=== PATIENT | male | born 1945 | race Hispanic/Latino ===

== ENCOUNTER 2019-06-20 11:20 | Emergency (ER) | payer MEDICARE ==
[~2019-06-20] VITALS: Ht 160 cm; Wt 72.6 kg
--- OUTSIDE RECORDS SUMMARY | 2019-06-20 11:23 | XMS REPORT ---
Author [facility] Address Unknown Phone Unavailable Care Team Providers Care Service Delivery Management Consultant Name Role Phone Unavailable Unavailable Payers Payer Name Policy Type Policy Number Effective Date Expiration Date Problems This patient has no known problems. Allergies, Adverse Reactions, Alerts Allergy Name Allergy Type Status Severity Reaction(s) Onset Date Inactive Date Treating Clinician Comments No Known Allergies DA Active U 2019-05-05 00:00:00 No Known Allergies DA Active U 2017-04-17 00:00:00 Medications This patient has no known medications. Results Test Description Test Time Test Comments Text Results Atomic Results Result Comments PROTHROMBIN TIME 2019-05-23 15:33:00 PROTHROMBIN TIME PATIENT (test code=PTP) 10.9 SECONDS 9.3-12.9 INTERNATIONAL NORMAL RATIO (test code=INR) 1.0 0.8-1.2 TARGET INR BY INDICATION Indication INR1. Prophylaxis of venous thrombosis 2.0 - 3.0 (orthopedic surgery), Prophylaxis of venous thrombosis (other than high-risk surgery), Treatment of Deep Vein Thrombosis/Pulmonary Embolism, Prevention of systemic embolism - Tissue heart valves, Acute Myocardial Infarction (to prevent systemic embolism), Valvular heart disease, Atrial Fibrillation, Bileaflet mechanical valve in aortic position.2. Mechanical prosthetic valves (high risk), 2.5 - 3.5 Presence of Lupus Anticoagulant or Antiphospholipid Antibodies, Prevention of systemic embolism - Acute Myocardial Infarction (to prevent recurrent infarct). THROMBOPLASTIN TIME [id number] 15:33:00* Test Item Value Reference Range Comments THROMBOPLASTIN TIME PARTIAL (test code=PTT) 30.2 Seconds 25.0-39.5 Therapeutic Range: 50.4 - 88.3 Seconds Effective 01/10/2019 PLATELET [id number] 15:33:00* Test Item Value Reference Range Comments PFA COL/EPI (test code=PFA) 86 SECONDS 80-184 An abnormal COL/EPI value in combination with a normalCOL/ADP, suggests exposure to platelet inhibiting agents. An abnormal COL/EPI and an abnormal COL/ADP result suggestabnormal platelet function due to intrinsic platelet defectsor von Willebrand's disease. PFA COLLAGEN/ADP (test code=COLADP) TEST NOT PERFORMED SECONDS SURGICAL [id number] 08:48:00 RUN DATE: 05/12/19 [facility] *LIVE* PAGE 1 RUN TIME: 0848 Specimen Inqui ry RUN USER: INTERFACE PATIENT: CLARENCE PATTEN ACCT #: [id number] LOC: G.1SOC U #: [id number] AGE/SX: 73/M ROOM: [facility] RE05/09/19REG DR: Victor Hugo Lange MD : 45 BED: 1 DIS: 05/10/19 STATUS: DIS Reilly TLOC: SPEC #: [id number] RECD: 05/09/19 STATUS: YULISA TOM #: [id number] THELMA: 05/09/[address]: Victor Hugo Lange ENTERED: 05/11/19 SP TYPE: SURG SPEC OTHR DR: Kojo Perez MD, Henry MD R ajan, Rajeswari T MDORDERED: GM LEVEL 4 CODES: [id number] - KIDNEY, NOS COPIES TO: Kojo Perez MD [address] [place] [address] Connie Lange MD [address] [facility] [address] [place] [address] Miguel Yoder MD [address] [place] [address] Mona Hopkins MD [address] [place] [address] [address] [place] [address] P ROCEDURES: GM LEVEL 4 (Incomplete) TISSUES: 1. KIDNEY, NOS - Kidney, l eft, bx. FINAL DIAGNOSIS Kidney, left, bx.: Sent to [facility] for processing and interpretation by the request of the attending physicia nSara OUTSIDE CONSULTATION ONLY! CONT INUED ON NEXT PAGE RUN DATE: 05/12/19 [facility] *LIVE* PAGE 2 RUN TIME: 0848 Specimen Inquiry RUN USER: INTERFACE SPEC #: [id number] PATIENT: CLARENCE PATTEN #[id number] (Continued) GROSS AND MICROSCOPIC GROSS DESCRIPTION: Received is a left kidney biop sy that will be sent to [facility] for processing and interpretation by the request of the attending physician. OUTSIDE CONSULTATION ONLY! POST-OP DIAGNOSIS None given PRE-OP DIAGNOSIS Proteinuria, chronic kidney disease Signed SIGNATURE ON FILE Juve Dunn MD 05/12/19 0848 END OF REPORT BASIC METABOLIC [id number] 08:22:00* Test Item Value Reference Range Comments SODIUM (test code=NA) 144 mEq/L 134-147 POTASSIUM (test code=K) 4.6 mEq/L 3.4-5.0 CHLORIDE (test code=CL) 113 mEq/L 100-108 CARBON DIOXIDE (test code=CO2) 23 mEq/L 21-33 ANION GAP (test code=GAP) 13 0-20 GLUCOSE (test code=GLU) 98 mg/dL 70-110 BLOOD UREA NITROGEN (test code=BUN) 52 mg/dL 7-18 GLOMERULAR FILTRATION RATE (test code=GFR) 15.2 70-80 Units of measure=ml/min/1.73 m2 CREATININE (test code=CREAT) 3.9 mg/dL 0.6-1.3 CALCIUM (test code=CA) 7.9 mg/dL 8.0-10.5 CBC W/AUTO [id number] 07:43:00* Test Item Value Reference Range Comments WHITE BLOOD CELL (test code=WBC) 9.99 x10 3/uL 4.5-11.0 RED BLOOD CELL (test code=RBC) 3.86 x10 6/uL 4.00-5.60 HEMOGLOBIN (test code=HGB) 11.2 g/dL 12.5-16.9 HEMATOCRIT (test code=HCT) 35.1 % 37.5-50.7 MEAN CELL VOLUME (test code=MCV) 90.9 fL 81.0-99.0 MEAN CELL HGB (test code=MCH) 29.0 pg 27.0-33.0 MEAN CELL HGB CONCETRATION (test code=MCHC) 31.9 g/dL 33.0-37.0 RED CELL DISTRIBUTION WIDTH CV (test code=RDW) 15.2 % 11.5-14.5 RED CELL DISTRIBUTION WIDTH SD (test code=RDW-SD) 50.5 fL 37.0-54.0 PLATELET COUNT (test code=PLT) 228 x10 3/uL 150-400 MEAN PLATELET VOLUME (test code=MPV) 11.2 fL 7.0-9.0 NEUTROPHIL % (test code=NT%) 73.1 % 56.0-77.0 IMMATURE GRANULOCYTE % (test code=IG%) 0.7 % 0.0-2.0 LYMPHOCYTE % (test code=LY%) 16.5 % 14.0-32.0 MONOCYTE % (test code=MO%) 7.9 % 4.8-9.0 EOSINOPHIL % (test code=EO%) 1.3 % 0.3-3.7 BASOPHIL % (test code=BA%) 0.5 % 0.0-2.0 NUCLEATED RBC % (test code=NRBC%) 0.0 % 0-0 NEUTROPHIL # (test code=NT#) 7.30 x10 3/uL 2.0-7.6 IMMATURE GRANULOCYTE # (test code=IG#) 0.07 x10 3/uL 0.00-0.03 LYMPHOCYTE # (test code=LY#) 1.65 x10 3/uL 1.0-3.8 MONOCYTE # (test code=MO#) 0.79 x10 3/uL 0.1-0.8 EOSINOPHIL # (test code=EO#) 0.13 x10 3/uL 0.0-0.2 BASOPHIL # (test code=BA#) 0.05 x10 3/uL 0.0-0.2 NUCLEATED RBC # (test code=NRBC#) 0.00 x10 3/uL 0.0-0.1 MANUAL DIFF REQUIRED (test code=MDIFF) NO [id number] 21:58:00* Test Item Value Reference Range Comments HEMOGLOBIN (test code=HGB) 10.1 g/dL 12.5-16.9 - RETRO [id number] 15:40:00 Name: CLARENCE PATTEN [facility] : 1945 Age/S: 73 / M [address] [place] [address] Bl Unit #: [id number] Loc: [place] [address] Phys: Miguel Yoder MD Acct: [id number] Dis Date: Status: ADM IN PHONE #: [phone] Exam Date: 05/09/2019 1206 FAX #: [phone] Reason: PROTEINURIA, CKD EXAMS: CPT CODE: [id number] RETRO LTD 37976 PROCEDURE: Ultrasound guided renal biopsy. INDICATION: Stage IV chronic kidney disease, proteinuria. COMPARISON: None. MODERATE SEDATION: I supervised moderate sedation during this procedure. The patient was monitored by nurse using automated blood pressure, EKG and pulse oximetry. The moderate sedation record is permanently stored in the hospital information system. The personal supervised moderate sedation time was 24 minutes. Medications administered: 1 mg of IV Versed and 50 micrograms of IV Fentanyl. PROCEDURE: Imaging was used to evaluate potential biopsy sites. Preliminary imaging demonstrates thinning of renal parenchyma in the left kidney.. The procedure, risks, benefits and alternatives were discussed. Informed consent was obtained. Timeout was performed prior to the procedure. The skin overlying the kidney was sterilely prepped and draped. 1% lidocaine was used for local anesthesia. Using imaging guidance, a 18-gauge needle was advanced into the lower pole left kidney. Core biopsy was performed. Total number of biopsies obtained was 3. Images were obtained to document needle positions for permanent recording and reporting. The samples were immediately submitted to patholo gy department. The pathology department confirmed diagnostic adequacy of the samples. There were no evident complications and the patient had no complaints. Pressure was applied at the puncture site with adequate hem ostasis. Final pathology results are pending. IMPRESSION: 1. Technically successful ultrasound guided biopsy of the left kidne y. PLAN: 23 hour observation. SL: [id number] PAGE 1 Signed Report (CONTINUED) Name: CLARENCE PATTEN [facility]adim [facility] [place] : 1945 Age/S: 73 / M [address] [place] [address] Unit #: [id number] Loc: [place], [place] [address] Phys: Miguel Yoder MD Acct: [id number] Dis Date: Status: ADM IN PHONE #: [phone] Exam Date: 05/09/2019 1206 FAX #: [phone] Reason: PROTEINURIA, CKD EXAMS: CPT CODE: [id number] [facility] [address] < Continued> at 1540 Reported and signed by: Kojo Conrad M.D. CC: Miguel Yoder MD; Christen Hopkins Technologist: Benita Pyle Trnsdb Date/Time: 05/09/2019 (1540) [email or web address] Orig Print D/T: S: 05/09/2019 (5990) Probe: PAGE 2 Signed Report - USG NDL PLACEMENT (Bxg/Asp)2019-05-09 15:40:00 Name: CLARENCE PATTEN [facility] : 1945 Age/S: 73 / M [address] [place] [address] Unit #: [id number] Loc: [place], [place] [address] Phys: Miguel Yoder MD Acct: [id number] Dis Date: Status: ADM IN PHONE #: [phone] Exam Date: 05/09/20191205 FAX #: [phone] Reason: PROTEINURIA, CHRONIC KIDNEY DISEASE STAGE 4 EXAMS: CPT CODE: [id number] USG NDL PLACEMENT (Bxg/Asp) 61852 PROCEDURE: Ultrasound guided renal biopsy. INDICATION: Stage IV chronic kidney disease, proteinuria. COMPARISON: None. MODERATE SEDATION: I supervised moderate sedation during this procedure. The patient was monitored by nurse using automated blood pressure, EKG and pulse oximetry. The moderate sedation record is permanently stored in the hospital information system. The personal supervised moderate sedation time was 24 minutes. Medications administered: 1 mg of IV Versed and 50 micrograms of IV Fentanyl. PROCEDURE: Imaging was used to evaluate potential biopsy sites. Preliminary imaging demonstrates thinning of renal parenchyma in the left kidney.. The procedure, risks, benefits and alternatives were discussed. Informed consent was obtained. Timeout was performed prior to the procedure. The skin overlying the kidney was sterilely prepped and draped. 1% lidocaine was used for local anesthesia. Using imaging guidance, a 18-gauge needle was advanced into the lower pole left kidney. Core biopsy was performed. Total number of biopsies obtained was 3. Images were obtained to document needle positions for permanent recording and reporting. The samples were immediately submitted to patholo gy department. The pathology department confirmed diagnostic adequacy of the samples. There were no evident complications and the patient had no complaints. Pressure was applied at the puncture site with adequate hem ostasis. Final pathology results are pending. IMPRESSION: 1. Technically successful ultrasound guided biopsy of the left kidne y. PLAN: 23 hour observation. SL: [id number] PAGE 1 Signed Report (CONTINUED) Name: CLARENCE PATTEN [facility] : 1945 Age/S: 73 / M [address] [place] [address] Blvd Unit #: [id number] Loc: [place] [address] Phys: Miguel Yoder MD Acct: [id number] Dis Date: Status: ADM IN PHONE #: [phone] Exam Date: 05/09/20191205 FAX #: [phone] Reason: PROTEINURIA, CHRONIC KIDNEY DISEASE STAGE 4 EXAMS: CPT CODE: [id number] USG NDL PLACEMENT (Bxg/Asp) 44881 < Continued> at 1540 Reported and signed by: Kojo Conrad M.D. CC: Miguel Yoder MD; Christen Hopkins Technologist: [facility]ita Pyle [facility] Date/Time: 05/09/2019 (1540) MichelleG Orig Print D/T: S: 05/09/2019 (3662) Probe: PAGE 2 Signed Report [id number] 13:20:00* Test Item Value Reference Range Comments GLUBED (test code=GLUBED) 180 MG/DL 70-110 Performed by certified rip and groove machine operator at [facility] PROTHROMBIN [id number] 10:23:00* Test Item Value Reference Range Comments PROTHROMBIN TIME PATIENT (test code=PTP) 10.9 SECONDS 9.3-12.9 INTERNATIONAL NORMAL RATIO (test code=INR) 1.0 0.8-1.2 TARGET INR BY INDICATION Indication INR1. Prophylaxis of venous thrombosis 2.0 - 3.0 (orthopedic surgery), Prophylaxis of venous thrombosis (other than high-risk surgery), Treatment of Deep Vein Thrombosis/Pulmonary Embolism, Prevention of systemic embolism - Tissue heart valves, Acute Myocardial Infarction (to prevent systemic embolism), Valvular heart disease, Atrial Fibrillation, Bileaflet mechanical valve in aortic position.2. Mechanical prosthetic valves (high risk), 2.5 - 3.5 Presence of Lupus Anticoagulant or Antiphospholipid Antibodies, Prevention of systemic embolism - Acute Myocardial Infarction (to prevent recurrent infarct). THROMBOPLASTIN TIME [id number] 10:23:00* Test Item Value Reference Range Comments THROMBOPLASTIN TIME PARTIAL (test code=PTT) 30.2 Seconds 25.0-39.5 Therapeutic Range: 50.4 - 88.3 Seconds Effective 01/10/2019 PLATELET [id number] 10:23:00* Test Item Value Reference Range Comments PFA COL/EPI (test code=PFA) 86 SECONDS 80-184 An abnormal COL/EPI value in combination with a normalCOL/ADP, suggests exposure to platelet inhibiting agents. An abnormal COL/EPI and an abnormal COL/ADP result suggestabnormal platelet function due to intrinsic platelet defectsor von Willebrand's disease. PFA COLLAGEN/ADP (test code=COLADP) SECONDS PROTHROMBIN [id number] 08:19:00* Test Item Value Reference Range Comments PROTHROMBIN TIME PATIENT (test code=PTP) 10.9 SECONDS 9.3-12.9 INTERNATIONAL NORMAL RATIO (test code=INR) 1.0 0.8-1.2 TARGET INR BY INDICATION Indication INR1. Prophylaxis of venous thrombosis 2.0 - 3.0 (orthopedic surgery), Prophylaxis of venous thrombosis (other than high-risk surgery), Treatment of Deep Vein Thrombosis/Pulmonary Embolism, Prevention of systemic embolism - Tissue heart valves, Acute Myocardial Infarction (to prevent systemic embolism), Valvular heart disease, Atrial Fibrillation, Bileaflet mechanical valve in aortic position.2. Mechanical prosthetic valves (high risk), 2.5 - 3.5 Presence of Lupus Anticoagulant or Antiphospholipid Antibodies, Prevention of systemic embolism - Acute Myocardial Infarction (to prevent recurrent infarct). THROMBOPLASTIN TIME [id number] 08:19:00* Test Item Value Reference Range Comments THROMBOPLASTIN TIME PARTIAL (test code=PTT) 30.2 Seconds 25.0-39.5 Therapeutic Range: 50.4 - 88.3 Seconds Effective 01/10/2019 PLATELET [id number] 08:19:00* Test Item Value Reference Range Comments PFA COL/EPI (test code=PFA) SECONDS PFA COLLAGEN/ADP (test code=COLADP) SECONDS
--- NOTE | 2019-06-20 12:20 | NUR ---
DR. BECK AT BEDSIDE FOR PT EVAL AND UPDATING PT ON PLAN OF CARE AT THIS TIME.
--- NOTE | 2019-06-20 13:38 | NUR ---
DR. MEIER AT BEDSIDE FOR PT EVAL.
[2019-06-20 13:45] LABS: BASOPHILS # (AUTO) 0.1 (0.0-0.1); BASOPHILS % 0.5 % (0.0-1.0); EOSINOPHILS # (AUTO) 0.2 (0.0-0.4); EOSINOPHILS % 1.6 % (0.0-6.0); HEMATOCRIT 25.1 % (38.2-49.6); LYMPHOCYTES # (AUTO) 1.7 (1.0-3.2); LYMPHOCYTES % 15.2 % (18.0-39.1); MEAN CORPUSCULAR HEMOGLOBIN 30.1 pg (28-32); MEAN CORPUSCULAR HGB CONC 31.9 g/dL (31-35); MEAN CORPUSCULAR VOLUME 94.4 fL (81-99); MONOCYTES # (AUTO) 0.8 (0.2-0.8); MONOCYTES % 7.5 % (4.4-11.3); NEUTROPHILS # (AUTO) 8.2 (2.1-6.9); NEUTROPHILS % 74.6 % (38.7-80.0); PLATELET COUNT 183 x10e3/uL (140-360); RED BLOOD COUNT 2.66 x10e6/uL (4.3-5.7); RED CELL DISTRIBUTION WIDTH 13.2 % (11.7-14.4)
[2019-06-20 14:08] LABS: ALBUMIN/GLOBULIN RATIO 0.6 (0.8-2.0); ANION GAP 15.6 mmol/L (8-16); CALCIUM 7.3 mg/dL (8.4-10.2); CREATININE, SERUM 5.39 mg/dL (0.72-1.25); POTASSIUM 3.6 mmol/L (3.5-5.1)
[2019-06-20 14:45] VITALS: BP 198/85
== END 2019-06-20 14:48 | disposition home or self-care (01) ==
LOC: ER 11:20
DX: R60.9 Edema, unspecified (principal); N17.9 Acute kidney failure, unspecified; N50.89 Other specified disorders of the male genital organs
CPT/HCPCS: 36415; 80053; 85025; 99283

== ENCOUNTER → 2019-08-31 | Outpatient (CLI) | payer MEDICARE ==
--- NOTE | 2019-08-31 12:50 | Diagnostic Imaging Report ---
CT of the abdomen and pelvis History: 80 calculus Comparison: None available. Technique: Multidetector CT scanning of the abdomen and pelvis was performed from the level of the lung bases to the inferior pubic ramus without contrast DOSE REDUCTION: The examination was performed according to departmental dose-optimization program which includes automated exposure control, adjustment of the mA and/or kV according to patient size and/or use of iterative reconstruction technique. Discussion: Small bilateral pleural effusions are present. Lack of IV contrast was evaluation of solid and hollow visceral organs. No focal hepatic lesions are identified. The gallbladder is present nondistended. There are no radiopaque gallstones. There is no intrahepatic or extrahepatic ductal dilatation. The spleen is within normal limits. The bilateral adrenal glands are unremarkable. The pancreas is homogeneous in attenuation. There is no pancreatic ductal dilatation. Calcifications at the tail of the pancreas may be related to the sequela of prior pancreatitis. The kidneys are normal in size. No kidney stones are identified. There is no hydroureteronephrosis bilaterally. There is exophytic cyst arising from the upper pole of the left kidney which measures 4 cm in diameter. The stomach, small, and large bowel are nondistended. There is no evidence of obstruction. No bowel wall thickening is appreciated. There is colonic diverticulosis without evidence of acute diverticulitis. There is no free intraperitoneal air or ascites. The abdominal aorta is of normal course and caliber. The urinary bladder is within normal limits. The prostate is not enlarged. No acute osseous abnormalities are identified. IMPRESSION: 1. No evidence of nephroureterolithiasis. 2. Small bilateral pleural effusions. 3. Colonic diverticulosis without evidence of acute diverticulitis. Signed by: Ronan Tam MD on 08/31/2019 12:47 PM
== END ==
LOC: CT 10:26
PROVIDERS: ATTEND Urology
DX: N20.0 Calculus of kidney (principal)
CPT/HCPCS: 74176

== ENCOUNTER 2019-09-07 15:57 | Inpatient (IN) | payer MEDICARE ==
[~2019-09-07] VITALS: Ht 160 cm; Wt 72.2 kg
[2019-09-07] MEDS ORDERED: HYDRALAZINE HCL50 MG PO (16:31)
[2019-09-07] MEDS ORDERED: NIFEDIPINE ER30 MG PO (16:31)
[2019-09-07] MEDS ORDERED: BUMETANIDE2 MG PO (16:31)
[2019-09-07] MEDS ORDERED: CARVEDILOL25 MG PO (16:31)
[2019-09-07 16:54] LABS: BASOPHILS % 0.3 % (0.0-1.0); EOSINOPHILS # (AUTO) 0.3 (0.0-0.4); EOSINOPHILS % 3.3 % (0.0-6.0); HEMATOCRIT 19.6 % (38.2-49.6); LYMPHOCYTES # (AUTO) 1.5 (1.0-3.2); LYMPHOCYTES % 16.7 % (18.0-39.1); MEAN CORPUSCULAR HEMOGLOBIN 29.7 pg (28-32); MEAN CORPUSCULAR HGB CONC 32.1 g/dL (31-35); MEAN CORPUSCULAR VOLUME 92.5 fL (81-99); MONOCYTES # (AUTO) 0.9 (0.2-0.8); MONOCYTES % 9.5 % (4.4-11.3); NEUTROPHILS # (AUTO) 6.3 (2.1-6.9); PLATELET COUNT 243 x10e3/uL (140-360); RED BLOOD COUNT 2.12 x10e6/uL (4.3-5.7); RED CELL DISTRIBUTION WIDTH 13.7 % (11.7-14.4)
[2019-09-07 16:56] LABS: HEMOGLOBIN 6.3 g/dL (14.0-18.0)
[2019-09-07] MEDS ORDERED: SODIUM CHLORIDE 0.9% 250ML 250 ML IV ONE (17:00)
[2019-09-07 17:12] LABS: ALBUMIN 2.9 g/dL (3.5-5.0); ALBUMIN/GLOBULIN RATIO 0.9 (0.8-2.0); ANION GAP 22.1 mmol/L (8-16); CALCIUM 8.2 mg/dL (8.4-10.2); CREATININE, SERUM 11.06 mg/dL (0.72-1.25); MAGNESIUM 1.8 MG/DL (1.3-2.1)
[2019-09-07] MEDS ORDERED: MORPHINE SULFATE INJ 4 MG/ML INJ 1ML IV PRN (17:15)
[2019-09-07] MEDS ORDERED: MORPHINE SULFATE 2 MG/ML SYR 1ML IV PRN (17:15)
[2019-09-07] MEDS ORDERED: ONDANSETRON HCL INJ 2MG/ML 2ML 2 MG/ML VIAL IV PRN (17:15)
[2019-09-07 17:16] LABS: POTASSIUM 5.1 mmol/L (3.5-5.1)
--- NOTE | 2019-09-07 17:22 | Diagnostic Imaging Report ---
Chest, 1 view, 09/07/2019. History: Shortness of breath. Comparison: None available. Findings: The cardiomediastinal silhouette and pulmonary vasculature are mildly prominent with hazy bilateral perihilar and bibasilar opacities. There is mild blunting of the costophrenic sulci bilaterally. There are no acute osseous or soft tissue abnormalities. Impression: Mild CHF with bibasilar atelectasis and small pleural effusions. Signed by: Cornelius Reeves on 09/07/2019 5:19 PM
[2019-09-07 17:30] LABS: CREATINE KINASE MB 1.8 ng/mL (0-5.0)
[2019-09-07 17:44] LABS: BILIRUBIN,URINE NEGATIVE (NEGATIVE); CLARITY,URINE SL CLOUDY (CLEAR); COLOR,URINE YELLOW (YELLOW); KETONES,URINE NEGATIVE (NEGATIVE); LEUKOCYTE ESTERASE ,URINE NEGATIVE (NEGATIVE); NITRITE,URINE NEGATIVE (NEGATIVE); PROTEIN,URINE DIPSTICK 2+ (NEGATIVE); URINE UROBILINOGEN 0.2 mg/dL (0.2 - 1)
[2019-09-07] MEDS ORDERED: FUROSEMIDE INJ 10 MG/ML 4 ML VIAL IV ONE (17:45)
[2019-09-07 17:51] LABS: AMORPHOUS SEDIMENT,URINE MODERATE (FEW); BACTERIA,URINE MODERATE /HPF; EPITHELIAL CELLS,URINE MODERATE /LPF
[2019-09-07 17:58] LABS: INR 1.01; PARTIAL THROMBOPLASTIN TIME 26.8 seconds (23.8-35.5); PROTHROMBIN TIME 13.8 seconds (11.9-14.5)
--- NOTE | 2019-09-07 19:40 | NUR ---
CALL PLACED TO RADIOLOGY REGARDING IR CONSULT. WAS INFORMED THAT IR WOULD BE PAGED AT THIS TIME. CONSENT ON CHART.
[2019-09-07] MEDS: AZITHROMYCIN 250MG/NS 100 ML 100 ML IV SCH (20:16)
[2019-09-07 21:00] VITALS: BP 165/77
--- NOTE | 2019-09-07 21:05 | NUR ---
IR CONSULT AMENDED TO INCLUDE THAT THE PT IS HAVING DIALYSIS DIRECTLY AFTER CATH PLACED TONIGHT, PER REQUEST OF IR DR. DR OLMEDO
--- NOTE | 2019-09-07 21:42 | NUR ---
DR MEIER CALLED THE ER, DR MIRANDA SPOKE BRIEFLY WITH HIM ABOUT IR PROCEDURE. SITUATION ESCALATED TO JAMEL GUTIÉRREZ. CHARGE NURSE AND SUPERVISIOR AWARE.
[2019-09-07 22:00] VITALS: BP 155/75
--- NOTE | 2019-09-07 22:30 | NUR ---
Called Rosalie and Paged the HD RN. Awaiting Callback
[2019-09-07] MEDS: SODIUM BICARBONATE 650 MG TAB PO SCH (22:52)
[2019-09-07] MEDS: BENZONATATE 100 MG CAP PO SCH (22:52)
[2019-09-07 23:00] VITALS: BP 169/76
[2019-09-08] VITALS (24 sets, daily range): BP systolic 155–187; BP diastolic 69–119
--- NOTE | 2019-09-08 00:17 | Diagnostic Imaging Report ---
EXAMINATION: CHEST XRAY LINE PLACEMENT INDICATION: Dialysis catheter placement, verify position COMPARISON: Chest x-ray 09/07/2019, abdominal CT 08/31/2019 FINDINGS: TUBES and LINES: New right IJ central venous catheter, tip in the superior cavoatrial junction. LUNGS/PLEURA: Bilateral central hazy airspace opacities in diffuse increased pulmonary interstitial lung markings. Heart and pulmonary vasculature. Obscured bilateral costophrenic sulci. HEART AND MEDIASTINUM: Cardiac size is mildly enlarged. BONES AND SOFT TISSUES: There are degenerative changes in the spine. Soft tissues are unremarkable. UPPER ABDOMEN: No free air under the diaphragm. IMPRESSION: New right IJ central venous catheter, tip in the superior cavoatrial junction. Mild cardiomegaly, pulmonary edema, and small bilateral pleural effusions. Signed by: Viral Grant DO on 09/08/2019 12:14 AM
--- NOTE | 2019-09-08 00:27 | Consultation ---
DATE OF CONSULTATION: 09/07/2019 LOCATION: Emergency room. HISTORY OF PRESENT ILLNESS: This is a 73-year-old gentleman, known to me in my Nephrology service, follows up with Dr. Yoder. He has CKD, 5, presents with weakness, dyspnea on exertion, malaise, and poor appetite. Upon arrival to the emergency room, he was placed on 2 L nasal cannula. He is currently awake, alert, and oriented x3. His is by the bedside. His conjunctivae and skin kind of look pale. He denies any hematemesis or melena. He admits to dyspnea on exertion. He had some chest pain this morning, has resolved. He denies any abdominal pain, diarrhea, melena, hematochezia, or black stools. He also denies any fevers or chills. ALLERGIES: HE HAS NO DRUG ALLERGIES. LABORATORY DATA: His labs show white count 9.1, hemoglobin 6.3 with a potassium 5.1, bicarbonate 13, and creatinine 11. He has a BNP of 674. Urinalysis is pending. HOME MEDICATIONS: Not reconciled yet. Currently, he is on morphine p.r.n. He is on ondansetron p.r.n. and received one time dose of furosemide. SOCIAL HISTORY: He does not smoke or drink. PAST MEDICAL HISTORY: Significant for hypertension and CKD, 5. He has been following up with Dr. Dr. Yoder and they were considering initiating dialysis. He does not have an AV fistula. He does have a history of congestive heart failure. He has been on carvedilol and hydralazine and nifedipine at home. He also takes Bumex at home. PHYSICAL EXAMINATION: GENERAL: Awake, alert, and oriented x3, lying supine, in no apparent respiratory distress. VITAL SIGNS: Blood pressure of 160/84, pulse rate 78, afebrile, and oxygen saturation 97% on 2 L nasal cannula. HEAD AND NECK: Conjunctivae pale. Oral mucosa moist. NECK: Neck veins are not distended. LUNGS: Occasional bibasilar rales. HEART: No gallop. Two to 3/6 ejection systolic murmur heard over left sternal border. ABDOMEN: Otherwise, soft and nontender. No apparent visceromegaly. EXTREMITIES: Lower extremity, 1+ pretibial edema. IMPRESSION: 1. Advanced kidney failure, anemia, and metabolic acidosis. Discussed with the patient. He agrees to initiate dialysis. Discussed with ER physician, who is going to place a stat call for IR to place a temporary dialysis catheter. ER is also going to call the dialysis nurses stat for stat dialysis. ER to arrange for 2 units of packed RBC. In the meantime, the patient will be admitted to the ICU. I will dialyze the patient, transfuse packed RBC, and address his fluid overload, acidosis and hyperkalemia on dialysis. I will place on a renal diet. Further workup ordered. MD BISHOP Boyikn/MODL /[id number]
[2019-09-08] MEDS ORDERED: SODIUM CHLORIDE 0.9% 250ML 250 ML ONE (01:28)
--- NOTE | 2019-09-08 05:14 | NUR ---
H&P PCP Calderon Rose MD, PhD Cardio: Nephr: Lucía cc: sob HPI: 73yoM, developed worsening SOB and fatigue, with hx CKD3, now needing initiation of HD. PMH: 1,HTN 2. HLD 3., Low vitamin B12 4. Peripheral edema 5. Carotid disease 6. Overweight 7.BMI 29.9 8. Erectile dysfunction 9. Essential Tremor 10.PreDM 11. DM-nephropathy 12. 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 Low testosterone 14.BPH 15.Senile cataract 16.Hypertensive nephropathy RESOLVED .Nephrolithiasis Left s/p lithotripsy - RESOLVED RESOLVED. Right triceps Myalgia- RESOLVED RESOLVED- Obesity- RESOLVED Past Surgical History: Lithotripsy, cataract Allergies; see emr Fh/Sh; no illicits Meds; see MAR ROS: no f/c/s/N/V/D/VOSS/cp/dizziness/back pain/confusion/agiation/skin rash v/s revd PE tired appearing anicteric ns1s2 reduced BS soft nt nd 1+ leg edema B/L skin dry flat affect Right neck HD catheter labs/meds revd A/P: 73yoM JUNAID in CKD3 CKD3 due to HTN- initiate HD Hypertensive nephropathy Severe anemia HTN Pulmonary edema Peripheral edema Overweight BMI 28.3 PreDM PLAN Initiate HD Cardio eval hba1c/Lipids Calderon Rose MD, PhD.
[2019-09-08 05:23] LABS: HEMATOCRIT 24.4 % (38.2-49.6); MEAN CORPUSCULAR HEMOGLOBIN 29.7 pg (28-32); MEAN CORPUSCULAR HGB CONC 32.8 g/dL (31-35); MEAN CORPUSCULAR VOLUME 90.7 fL (81-99); PLATELET COUNT 176 x10e3/uL (140-360); RED BLOOD COUNT 2.69 x10e6/uL (4.3-5.7); RED CELL DISTRIBUTION WIDTH 14.1 % (11.7-14.4)
--- NOTE | 2019-09-08 05:42 | Consultation ---
DATE OF CONSULTATION: 09/07/2019 Critical Care Consultation HISTORY OF PRESENT ILLNESS: Mr. Pace is a 73-year-old Latin male with past medical history of hypertension and chronic kidney disease, who according to the family has been putting off dialysis for some time. He was brought in essentially by his not feeling well. He has been having generalized malaise and shortness of breath and they note that he has been breathing deep and puffing, but he denies any cough. It has been worse over the last 3 to 5 days. He has increased swelling of the lower extremities. He does still make urine, but he has no hematuria or dysuria. He has no headaches, myalgias, arthralgias, or rash. PAST MEDICAL HISTORY: In addition to above includes anemia. Again, chronic kidney disease and high blood pressure. PAST SURGICAL HISTORY: Includes cataract surgery. ALLERGIES: DRUG ALLERGIES; NONE. SOCIAL HISTORY: He is . He lives not far from the hospital here in [place] near [facility]. He does not drink, smoke, or has any history of drug use. FAMILY HISTORY: Notable for high blood pressure. PHYSICAL EXAMINATION: VITAL SIGNS: Temperature 98.2, pulse is 78 initially, currently at 86. Telemetry shows sinus rhythm. His last blood pressure was 161/83. He is 97% with room air. He is breathing sort of a Kussmaul respiration about 20 to 22 breaths per minute. GENERAL: He is not distressed. He is lying flat in bed. He is awake, alert, and pleasant. Speech is fluent. HEENT: Cranial nerves intact. His pupils are round and reactive. His sclerae are anicteric. He does have marked mucosal pallor. His dentition is otherwise good. NECK: Supple. Trachea is midline. HEART: Has a regular rate and rhythm. I do not hear murmurs, rubs, or gallops. CHEST: Symmetric expansion. There are bibasilar rales. ABDOMEN: Soft, nontender, and nondistended. EXTREMITIES: Have at least 2+ edema. He also has some scrotal edema. SKIN: Warm and dry. There is no acute rash. NEUROLOGICAL: He is awake, alert, and nonfocal. LABORATORY DATA: Notable for hemoglobin and hematocrit of 6 and 19 respectively, platelet count is 243,000. He is mildly lymphopenic, but there is no left shift. Coags are within normal limits. Chemistries are notable for potassium of 5.1, bicarbonate of 13, anion gap of 22, BUN and creatinine are 112 and 11.6. LFTs are normal. Albumin is 2.9. Urinalysis shows slightly cloudy urine, 2+ protein, 1+ glucose, 2+ blood with 11 to 20 red blood cells, 6 to 10 white blood cells, moderate epithelial cells, sediment and bacteria. Stool was negative for occult blood. Serology is negative for influenza. Chest x-ray was reviewed and shows mild cardiomegaly, but he has bilateral pulmonary parenchymal opacities with blunting of the costophrenic angle suggestive of pulmonary edema and effusions. ASSESSMENT: 1. Pulmonary edema. 2. Pleural effusions. 3. Metabolic acidosis with gap . 4. Anemia, symptomatic. 5. Hypertension. 6. Shortness of breath secondary to respiratory compensation for metabolic acidosis and symptomatic anemia. RECOMMENDATIONS AND PLAN: He will be monitored in the ICU. We will repeat a 12-lead EKG to evaluate for peaked T-waves and other signs of hyperkalemia, which they just handed me and is unremarkable. He had sinus rhythm with some left axis deviation. There is a plan and Interventional Radiology is currently on site to place Trialysis catheter for emergent dialysis. He has been seen according to the nurses by Nephrology, hemodialysis is planned. We will discuss with Dr. Kwon. We will continue his antihypertensives and he will get chest x-ray in another day or so once his volume status is improved with a few sessions of dialysis. Dr. Rose and Dr. Kwon thank you for allowing me to participate in the care of this patient. MD RAFAEL Velazquez/MODL /[id number] LENIN
[2019-09-08 05:46] LABS: ALBUMIN 2.7 g/dL (3.5-5.0); ALBUMIN/GLOBULIN RATIO 0.8 (0.8-2.0); ANION GAP 19.8 mmol/L (8-16); CALCIUM 8.2 mg/dL (8.4-10.2); CREATININE, SERUM 7.69 mg/dL (0.72-1.25); POTASSIUM 3.8 mmol/L (3.5-5.1)
--- NOTE | 2019-09-08 07:59 | NUR ---
SPOKE WITH PATIENT ABOUT CHOICE FOR FACILITY FOR DIALYSIS, CHOSE [facility] AND IS OPEN ON SCHEDULE, SIGNED AND FILED IN CHART.
[2019-09-08] MEDS: BENZONATATE 100 MG CAP PO SCH ×3 (09:00→19:55)
[2019-09-08] MEDS: SODIUM BICARBONATE 650 MG TAB PO SCH ×2 (09:00→17:27)
[2019-09-08] MEDS: CARVEDILOL 12.5 MG TAB PO SCH ×2 (09:30→17:04)
--- NOTE | 2019-09-08 11:35 | Consultation ---
DATE OF CONSULTATION: Cardiology Consultation Note CONSULTING PHYSICIAN: Rajiv Proctor M.D., Interventional Cardiology. REASON FOR CONSULTATION: Heart failure. HISTORY OF PRESENT ILLNESS: Mr. Pace is a 73-year-old man with hypertension and advanced CKD, declined dialysis in the recent past, who presents with acute worsening shortness of breath, edema, uncontrolled hypertension, severe anemia with hemoglobin 6.3, and was initiated on dialysis. He feels better today. He is status post PRBC transfusion with increase in hemoglobin to 8 post transfusion. His fecal occult blood test is negative. He remains hypertensive, however, antihypertensive medications are being resumed this morning. He has currently no chest pain or other complaints. REVIEW OF SYSTEMS: Twelve-system review is negative except for as noted above. PAST MEDICAL HISTORY: As per HPI. ALLERGIES: NO KNOWN DRUG ALLERGIES. HOME MEDICATIONS: Reviewed. SOCIAL HISTORY: No active smoking, alcohol, or drugs. FAMILY HISTORY: Noncontributory. PHYSICAL EXAMINATION: VITAL SIGNS: Temperature 98.4, heart rate 87, blood pressure 184/85, respiratory rate 23, and O2 saturation 98%. BMI 28. GENERAL: In no acute distress. NECK: JVD distended with dialysis catheter in place. CHEST: Decreased breath sounds at bilateral bases. CARDIOVASCULAR: Regular rate and rhythm. Normal S1, S2. Systolic ejection murmur 1/6. ABDOMEN: Soft, nontender. Bowel sounds positive. EXTREMITIES: 1+ edema to both lower extremities. CARDIOVASCULAR MEDICATIONS: Reviewed. STUDIES: Reviewed. Sodium 143, potassium 3.8, chloride 109, bicarbonate 18, BUN 70, creatinine 7.6, and glucose 68. White blood cell 7.6, hemoglobin 8, platelets 176. Fecal occult blood test negative. Troponin I 0.2. BNP 674. Normal transaminases. RADIOGRAPHIC DATA: Chest x-ray, perihilar and bibasilar infiltrates and costophrenic sulci blunting. ASSESSMENT: A 73-year-old man presents with: 1. Acute diastolic heart failure. Hypertension, uncontrolled. 2. End-stage renal disease. 3. Anemia. RECOMMENDATIONS: 1. Resume carvedilol 25 mg every 12 hours. Hold other home antihypertensives for now as the patient is being initiated on dialysis and expect further drop in blood pressure. 2. Previous recent echocardiogram done in the office with preserved left ventricular systolic function. 3. Volume optimization being performed by Nephrology. 4. We will follow closely with you. Thank you for the opportunity to participate in the care of Mr. Pace. MD JOSE ANTONIO Rubin/DONNY /[id number]
[2019-09-08 12:45] LABS: CHOL/HDL RATIO 8.8 (3.9-4.7)
[2019-09-08] MEDS ORDERED: SODIUM CHLORIDE 0.9% 1000ML 1,000 ML ONE (13:46)
[2019-09-08 15:59] LABS: % IRON SATURATION 32 % (15-50); IRON 77 ug/dL (65-175); TOTAL IRON BINDING CAPACITY 239 ug/dL (261-478); TRANSFERRIN 171 mg/dL (174-364)
[2019-09-08] MEDS ORDERED: HEPARIN SOD (PORCINE) 1000 UNIT/ML SDV IV PRN (16:30)
[2019-09-08] MEDS ORDERED: SODIUM CHLORIDE 0.9% 250ML 500 ML IV PRN (16:30)
[2019-09-08] MEDS ORDERED: SODIUM CHLORIDE 0.9% 1000ML 2,000 ML IV PRN (16:30)
[2019-09-08] MEDS ORDERED: SODIUM BICARBONATE 650 MG TAB PO SCH (17:00)
[2019-09-08] MEDS: EPOETIN ALFA 10000 UNIT/ML VIAL SC SCH (17:04)
[2019-09-08] MEDS: HYDRALAZINE HCL 25 MG TAB PO SCH (17:04)
[2019-09-08] MEDS: AZITHROMYCIN 250MG/NS 100 ML 100 ML IV SCH (19:35)
--- NOTE | 2019-09-08 21:30 | NUR ---
Pt transported to 298 via hospital bed with Tele monitor and accompanied by 2 RNs. Pt was met in room by Bedside RN.
--- NOTE | 2019-09-08 21:40 | NUR ---
RECEIVED PATIENT FROM ICU IN STABLE CONDITION, NO SIGNS OF RESPIRATORY DISTRESS NOTED. PATIENT IS AOX3 AND NASAL CANNULA IS INTACT AND RUNNING AT 2 LITERS. PATIENT VOICES NO PAIN AT THIS TIME AND TELE MONITOR IS INTACT. BED IS IN LOWEST POSITION, BOTH SIDE RAILS ARE UP, CALL LIGHT IS WITHIN EASY REACH, WILL CONTINUE TO MONITOR.
[2019-09-09] VITALS (7 sets, daily range): BP systolic 157–196; BP diastolic 77–91
[2019-09-09] MEDS: HYDRALAZINE HCL 25 MG TAB PO SCH ×3 (00:49→20:45)
[2019-09-09 06:26] LABS: ANION GAP 16.1 mmol/L (8-16); CREATININE, SERUM 5.73 mg/dL (0.72-1.25); POTASSIUM 4.1 mmol/L (3.5-5.1)
--- NOTE | 2019-09-09 06:52 | NUR ---
IM- progress note O/N no events ROS: no f/c/s/N/V/D/VOSS/cp/dizziness/back pain/confusion/agiation/skin rash v/s revd PE tired appearing anicteric ns1s2 reduced BS soft nt nd 1+ leg edema B/L; Right ankle tender skin dry flat affect Right neck HD catheter labs/meds revd A/P: 73yoM JUNAID in CKD3 CKD3 due to HTN- initiate HD Hypertensive nephropathy Severe anemia HTN Pulmonary edema Peripheral edema Overweight BMI 28.3 PreDM PLAN Initiate HD Cardio eval hba1c/Lipids 09/09 Acute Exa Diastolic CHF- cont HD. LDL 204- use statin; Iron-deficiency anemia- supplement. Right ankle tender, hx Gout- check uric acid; start gabapentin. Calderon Rose MD, PhD.
[2019-09-09 07:03] LABS: FERRITIN 684.95 ng/mL (21.81-274.66)
[2019-09-09 07:22] LABS: HEMATOCRIT 25.7 % (38.2-49.6); HEMOGLOBIN 8.6 g/dL (14.0-18.0)
[2019-09-09] MEDS: GABAPENTIN 100 MG CAP PO SCH ×3 (07:30→18:05)
[2019-09-09] MEDS: CARVEDILOL 12.5 MG TAB PO SCH ×2 (09:00→18:05)
[2019-09-09] MEDS: BENZONATATE 100 MG CAP PO SCH ×3 (09:00→20:45)
[2019-09-09] MEDS: FERROUS SULFATE 325 MG TAB PO SCH (09:00)
[2019-09-09] MEDS: SODIUM BICARBONATE 650 MG TAB PO SCH ×2 (09:00→18:05)
--- NOTE | 2019-09-09 10:46 | NUR ---
spoke with Dr. Elmore (tool design draftsperson) at bedside who states since pt sats 95% on RA, d/c the nasal cannula and get pt up and walking, activity ad shayna.
[2019-09-09] MEDS ORDERED: METHYLPREDNISOLONE SOD SUCC 125 MG/2ML VIAL IV ONE (11:00)
[2019-09-09] MEDS ORDERED: METHYLPREDNISOLONE SOD SUCC 125 MG/2ML VIAL IV NR (11:30)
[2019-09-09] MEDS ORDERED: METHYLPREDNISOLONE SOD SUCC 40 MG/ML VIAL 1ML IV NR (12:45)
--- NOTE | 2019-09-09 14:08 | Progress Note ---
DATE: 09/09/2019 Cardiology Progress Note SUBJECTIVE: Undergoing dialysis today. Denies chest pain or shortness of breath. Has right ankle discomfort to active or passive flexion and extension. Has a history of gout and states this still likely typical flares. OBJECTIVE: VITAL SIGNS: Temperature 97.6, heart rate 69, blood pressure 196/91, respiratory rate 18, O2 saturation 94%. GENERAL: In no acute distress. NECK: Dialysis catheter in place. CHEST: Decreased breath sounds in bilateral bases. CARDIOVASCULAR: Regular rate and rhythm. Normal S1, S2. No S3 or S4. ABDOMEN: Soft, nontender. Bowel sounds positive. EXTREMITIES: Trace edema and right ankle discomfort to passive motion. CARDIOVASCULAR MEDICATIONS: Reviewed. Hydralazine 50 mg b.i.d. will be uptitrated to 100 mg t.i.d., carvedilol 25 mg b.i.d., atorvastatin 40 mg at bedtime, on ferrous sulfate, bicarbonate, heparin p.r.n. LABORATORY STUDIES: Reviewed. Sodium 143, potassium 4.1, chloride 102, bicarbonate 29, BUN 39, creatinine 5.7, glucose 83. White blood cell 7.6, hemoglobin 8.6, platelets 176. AST 14, ALT 17. ASSESSMENT: 1. A 73-year-old man presents with severe symptomatic anemia with negative fecal occult blood test. Anemia of chronic disease. 2. End-stage renal disease initiated on dialysis on this admission. 3. Hypertensive crisis, urgency. 4. Hypertensive heart disease with preserved left ventricular systolic function on outpatient echo. 5. Gout attack right ankle. RECOMMENDATIONS: 1. Coordination with referring physician in initiating steroid therapy for gout flare. 2. Continue antihypertensives with the following change hydralazine uptitrated to 100 mg t.i.d. 3. Continue volume and metabolic optimization by Nephrology. 4. The patient is status post PRBC transfusion. Monitor H and H. Rajiv Proctor MD AFKorey/MODL /[id number]
[2019-09-09] MEDS: AZITHROMYCIN 250MG/NS 100 ML 100 ML IV SCH (20:19)
[2019-09-09] MEDS: ATORVASTATIN 20 MG TAB PO SCH (20:45)
--- NOTE | 2019-09-09 20:45 | NUR ---
PATIENT AOX4, NO SIGNS OF RESPIRATORY DISTRESS NOTED. PATIENT RESTING COMFORTABLY AND NASAL CANNULA WAS REMOVED WITH O2 SAT AT 97% ON ROOM AIR. PATIENT VOICES NO PAIN AT THIS TIME AND TELE MONITOR IS INTACT. BED IS IN LOWEST POSITION, BOTH SIDE RAILS ARE UP, CALL LIGHT IS WITHIN EASY REACH, WILL CONTINUE TO MONITOR
[2019-09-10] VITALS (8 sets, daily range): BP systolic 120–184; BP diastolic 60–89
--- NOTE | 2019-09-10 07:00 | NUR ---
received am report and rounds done. pt is sleeping, no s/s of distress. call light within reach and bed safety implemented
--- NOTE | 2019-09-10 07:44 | Diagnostic Imaging Report ---
EXAMINATION: CHEST 2 VIEWS INDICATION: Follow-up pulmonary edema and effusion. COMPARISON: Chest radiograph 09/07/2019. FINDINGS: TUBES and LINES: Right IJ non tunneled hemodialysis catheter terminates in the mid SVC. LUNGS: Lungs are well inflated. Interval improvement of bilateral interstitial opacities. Central vascular congestion. No lobar consolidation. PLEURA: Decreasing small bilateral pleural effusions. No pneumothorax. HEART AND MEDIASTINUM: The cardiomediastinal silhouette is mildly enlarged. BONES AND SOFT TISSUES: No acute osseous abnormality. UPPER ABDOMEN: No free air under the diaphragm. IMPRESSION: Decreasing mild pulmonary interstitial edema and small bilateral pleural effusions. Signed by: Dr. Ham Mooney MD on 09/10/2019 7:40 AM
[2019-09-10] MEDS: SODIUM BICARBONATE 650 MG TAB PO SCH ×2 (09:49→18:17)
[2019-09-10] MEDS: CARVEDILOL 12.5 MG TAB PO SCH ×2 (09:49→18:17)
[2019-09-10] MEDS: BENZONATATE 100 MG CAP PO SCH ×3 (09:49→22:00)
[2019-09-10] MEDS: FERROUS SULFATE 325 MG TAB PO SCH (09:49)
[2019-09-10] MEDS: GABAPENTIN 100 MG CAP PO SCH ×2 (09:49→18:17)
[2019-09-10] MEDS: HYDRALAZINE HCL 25 MG TAB PO SCH ×3 (09:49→21:00)
--- NOTE | 2019-09-10 10:16 | NUR ---
IM- progress note O/N no events ROS: no f/c/s/N/V/D/VOSS/cp/dizziness/back pain/confusion/agiation/skin rash v/s revd PE tired appearing anicteric ns1s2 reduced BS soft nt nd 1+ leg edema B/L; Right ankle tender skin dry flat affect Right neck HD catheter labs/meds revd A/P: 73yoM JUNAID in CKD3 CKD3 due to HTN- initiate HD Hypertensive nephropathy Severe anemia HTN Pulmonary edema Peripheral edema Overweight BMI 28.3 PreDM PLAN Initiate HD Cardio eval hba1c/Lipids 09/09 Acute Exa Diastolic CHF- cont HD. LDL 204- use statin; Iron-deficiency anemia- supplement. Right ankle tender, hx Gout- check uric acid; start gabapentin. 09/10 control BP; uric acid low; Calderon Rose MD, PhD.
[2019-09-10] MEDS ORDERED: SODIUM CHLORIDE 0.9% 250ML 250 ML ONE (11:11)
[2019-09-10] MEDS: IRON SUCROSE 100 MG in SODIUM CHLORIDE 0.9% 100 ML 100 ML IV SCH (11:19)
[2019-09-10] MEDS: NIFEDIPINE CR 30 MG TAB PO SCH ×2 (11:19→22:00)
--- NOTE | 2019-09-10 12:50 | Progress Note ---
DATE: 09/10/2019 Cardiology Progress Note SUBJECTIVE: No complaints. OBJECTIVE: VITAL SIGNS: Temperature 96.6, heart rate 79, respiratory rate 17, blood pressure 184/89, and O2 saturation 97% on room air. GENERAL: In no acute distress, alert. NECK: No JVD. CHEST: Clear to auscultation. CARDIOVASCULAR: Regular rate and rhythm. Normal S1, S2. ABDOMEN: Soft. Bowel sounds positive. EXTREMITIES: Trace edema. CARDIOVASCULAR MEDICATIONS: Reviewed. Hydralazine 100 mg t.i.d., ferrous sulfate 325 mg daily, atorvastatin 40 mg at bedtime, nifedipine 30 mg every 12 hours started today. STUDIES: Reviewed. None available for today. Telemetry, in sinus rhythm. ASSESSMENT AND PLAN: 1. A 73-year-old man with severe symptomatic anemia and negative fecal occult blood test, status post PRBC, anemia chronic disease. 2. End-stage renal disease, dialysis initiated this admission. 3. Hypertensive crisis, urgency. 4. Hypertensive heart disease with preserved left ventricular systolic function and outpatient echo. 5. Gout attack to right ankle. RECOMMEND: 1. Status post steroids yesterday. 2. Hypertension remains uncontrolled. Nifedipine added to current regimen. Continue beta-una and hydralazine. 3. Monitor H and H. Rajiv Proctor MD AFV/MODL /[id number]
[2019-09-10] MEDS: AZITHROMYCIN 250MG/NS 100 ML 100 ML IV SCH (18:17)
[2019-09-10] MEDS: ATORVASTATIN 20 MG TAB PO SCH (22:00)
--- NOTE | 2019-09-10 22:00 | NUR ---
PATIENT AOX4, NO SIGNS OF RESPIRATORY DISTRESS NOTED. PATIENT AWARE OF PROCEDURE IN THE MORNING AND CONSENT WAS SIGNED AND PATIENT VOICED UNDERSTANDING OF NPO AFTER MIDNIGHT. PATIENT VOICES NO PAIN AT THIS TIME AND TELE MONITOR IS INTACT. BED IS IN LOWEST POSITION, BOTH SIDE RAILS ARE UP, CALL LIGHT IS WITHIN EASY REACH, WILL CONTINUE TO MONITOR
[2019-09-11] VITALS (8 sets, daily range): BP systolic 128–154; BP diastolic 61–70
[2019-09-11] MEDS: IRON SUCROSE 100 MG in SODIUM CHLORIDE 0.9% 100 ML 100 ML IV SCH (05:26)
--- NOTE | 2019-09-11 07:00 | NUR ---
received am report and rounds done. pt is sleeping in bed, no s/s of distress. call light within reach and bed safety implemented.
--- NOTE | 2019-09-11 07:37 | NUR ---
IM- progress note O/N no events ROS: no f/c/s/N/V/D/VOSS/cp/dizziness/back pain/confusion/agiation/skin rash v/s revd PE tired appearing anicteric ns1s2 reduced BS soft nt nd 1+ leg edema B/L; Right ankle tender skin dry flat affect Right neck HD catheter labs/meds revd A/P: 73yoM JUNAID in CKD3 CKD3 due to HTN- initiate HD Hypertensive nephropathy Severe anemia HTN Pulmonary edema Peripheral edema Overweight BMI 28.3 PreDM PLAN Initiate HD Cardio eval hba1c/Lipids 09/09 Acute Exa Diastolic CHF- cont HD. LDL 204- use statin; Iron-deficiency anemia- supplement. Right ankle tender, hx Gout- check uric acid; start gabapentin. 09/10 control BP; uric acid low; 09/11 cont HD; CM for HD set up. Calderon Rose MD, PhD.
[2019-09-11] MEDS: HYDRALAZINE HCL 25 MG TAB PO SCH ×3 (08:42→20:58)
[2019-09-11] MEDS: CARVEDILOL 12.5 MG TAB PO SCH ×2 (08:42→17:42)
[2019-09-11] MEDS: GABAPENTIN 100 MG CAP PO SCH ×2 (08:43→17:42)
[2019-09-11] MEDS: FERROUS SULFATE 325 MG TAB PO SCH (08:43)
[2019-09-11] MEDS: BENZONATATE 100 MG CAP PO SCH ×3 (08:43→20:59)
[2019-09-11] MEDS: NIFEDIPINE CR 30 MG TAB PO SCH ×2 (08:43→20:59)
[2019-09-11] MEDS: SODIUM BICARBONATE 650 MG TAB PO SCH ×2 (08:43→17:42)
[2019-09-11] MEDS ORDERED: FENTANYL CITRATE/PF 100MCG/2 ML INJ ONE (11:37)
[2019-09-11] MEDS ORDERED: MIDAZOLAM HCL 2 MG/2 ML VIAL ONE (11:37)
--- NOTE | 2019-09-11 12:03 | Progress Note ---
DATE: 09/11/2019 Cardiology Progress Note SUBJECTIVE: No complaints. OBJECTIVE: VITAL SIGNS: Temperature 96.9, heart rate 81, blood pressure 147/67, respiratory rate 18, and O2 saturation 96%. GENERAL: In no acute distress, alert. NECK: No JVD. CHEST: Clear to auscultation. CARDIOVASCULAR: Regular rate and rhythm. Normal S1, S2. No S3 or S4. ABDOMEN: Soft. Bowel sounds positive. EXTREMITIES: No edema. Dialysis catheter in place. CARDIOVASCULAR MEDICATIONS: Reviewed. Nifedipine 30 mg b.i.d., hydralazine 100 mg t.i.d. Methylprednisolone, status post one dose two days ago. Carvedilol 25 mg b.i.d., atorvastatin 40 mg at bedtime. STUDIES: Reviewed. Potassium 4.1, bicarbonate 29, BUN 39, creatinine 5.7, glucose 83, hemoglobin 8.6. ASSESSMENT AND PLAN: 1. A 73-year-old man presents with newly declared end-stage renal disease. 2. Hypertensive urgency, now with improving blood pressure control. 3. Anemia. 4. [id number] diastolic heart failure. RECOMMEND: 1. Continue current cardiovascular medications. 2. Blood pressure is improving, no additional changes to antihypertensive regimen today. MD JOSE ANTONIO Rubin/DONNY /[id number]
[2019-09-11] MEDS ORDERED: LIDOCAINE HCL 1% LOCAL INJ 20 ML VIAL ONE (12:26)
[2019-09-11] MEDS ORDERED: SODIUM CHLORIDE 0.9% 250ML 250 ML ONE (12:26)
[2019-09-11] MEDS ORDERED: HEPARIN SOD (PORCINE) 1000 UNIT/ML SDV ONE (12:47)
--- NOTE | 2019-09-11 13:36 | Diagnostic Imaging Report ---
PROCEDURE: Conversion of non-tunneled to tunneled hemodialysis catheter Procedural Personnel Attending physician(s): Smita De Los Santos MD Fellow physician(s): None Resident physician(s): None Advanced practice provider(s): None Pre-procedure diagnosis: CKD on HD Post-procedure diagnosis: Same Indication: Renal failure Additional clinical history: None Complications: No immediate complications. IMPRESSION: Conversion of right-sided internal jugular non-tunneled central venous catheter for a tunneled dialysis catheter, with tip in the expected location of the right atrium. Plan: The catheter may be used immediately. PROCEDURE SUMMARY: - Temporary central venous catheter removal - Tunneled central venous catheter insertion with fluoroscopic guidance - Additional procedure(s): None PROCEDURE DETAILS: Pre-procedure History and imaging of central venous access reviewed (QCDR): Yes Consent: Informed consent for the procedure including risks, benefits and alternatives was obtained and time-out was performed prior to the procedure. Preparation (MIPS): The site was prepared and draped using all elements of maximal sterile barrier technique including sterile gloves, sterile gown, cap, mask, large sterile sheet, sterile ultrasound probe cover, hand hygiene and cutaneous antisepsis with 2% chlorhexidine. Medical reason for site preparation exception (MIPS): Not applicable Anesthesia/sedation Level of anesthesia/sedation: No sedation Anesthesia/sedation administered by: Independent trained observer under attending supervision with continuous monitoring of the patient?s level of consciousness and physiologic status Catheter exchange Local anesthesia was administered. A wire was passed through the indwelling central venous catheter and into the central veins. The catheter was removed, and a peel-away sheath was placed. An incision was made near the venous access site and the catheter was tunneled subcutaneously to the venous access site. The catheter was advanced via a peel-away sheath into the vein under fluoroscopic guidance. Catheter tip location was fluoroscopically verified and a permanent image was stored. Catheter placed: Nano Precision Medicalrome Catheter size (Guamanian): 14.5 Guamanian Catheter flush: Heparin (1000 units/mL) Closure The access site was closed and a sterile bandage was applied. Access site closure technique: Tissue adhesive Catheter securement technique: Non-absorbable suture Contrast Contrast agent: None Radiation Dose Fluoroscopy time (minutes): 0.0 Reference air kerma (mGy): 0.38 Additional Details Additional description of procedure: None Equipment details: None Specimens removed: Temporary central venous catheter Estimated blood loss (mL): Less than 10 Standardized report: [email or web address] Attestation Signer name: Smita De Los Santos MD I attest that I was present for the entire procedure. I reviewed the stored images and agree with the report as written. Signed by: Smita De Los Santos MD on 09/11/2019 1:33 PM
[2019-09-11] MEDS: EPOETIN ALFA 10000 UNIT/ML VIAL SC SCH (15:54)
--- NOTE | 2019-09-11 16:58 | Diagnostic Imaging Report ---
PROCEDURE: Non-tunneled central venous catheter placement Procedural Personnel Attending physician(s): Smita De Los Santos MD Fellow physician(s): None Resident physician(s): None Advanced practice provider(s): None Pre-procedure diagnosis: Acute kidney injury Post-procedure diagnosis: Same Indication: Performance of hemodialysis Additional clinical history: None Complications: No immediate complications. IMPRESSION: Insertion of right-sided non-tunneled triple-lumen temporary dialysis catheter. Plan: The catheter may be used following chest radiograph to confirm positioning. PROCEDURE SUMMARY: - Venous access with ultrasound guidance - Non-tunneled central venous catheter insertion. - Additional procedure(s): None PROCEDURE DETAILS: Pre-procedure Consent: Informed consent for the procedure including risks, benefits and alternatives was obtained and time-out was performed prior to the procedure. Preparation (MIPS): The site was prepared and draped using all elements of maximal sterile barrier technique including sterile gloves, sterile gown, cap, mask, large sterile sheet, sterile ultrasound probe cover, hand hygiene and cutaneous antisepsis with 2% chlorhexidine. Medical reason for site preparation exception (MIPS): Not applicable Anesthesia/sedation Level of anesthesia/sedation: No sedation Access Local anesthesia was administered. The vessel was sonographically evaluated and determined to be patent. Real time ultrasound was used to visualize needle entry into the vessel and a permanent image . Vein accessed: Internal jugular vein Access technique: Micropuncture set with 21 gauge needle Catheter placement The access site was dilated and the catheter was placed into the vein over a wire under fluoroscopic guidance. The catheter tip location was fluoroscopically verified and a permanent image was stored.. A sterile dressing was applied. Catheter placed: Bard trialysis Catheter size (Tristanian): 13 Catheter length (cm): 15 Catheter flush: Normal saline Catheter securement technique: Non-absorbable suture Radiation Dose None. Ultrasound guidance. Additional Details Additional description of procedure: None Equipment details: None Specimens removed: None Estimated blood loss (mL): Less than 10 Standardized report: [email or web address] Attestation Signer name: Smita De Los Santos MD I attest that I was present for the entire procedure. I reviewed the stored images and agree with the report as written. Signed by: Smita De Los Santos MD on 09/11/2019 4:55 PM
--- NOTE | 2019-09-11 17:05 | NUR ---
RECEIVED VM FROM LUIS FERNANDO TAYLOR INQUIRING ABOUT LABS. CALL BACK TO LUIS FERNANDO. INFORMED HEP PANEL STILL PENDING. INQUIRED ABOUT AV FISTULA INSERTION PRIOR TO DC. NOT REQUIRED TO HAVE PRIOR TO DC. PT TO BE ACCEPTED AFTER HEP B PANEL FAXED. Addendum: 09/11/19 at 1728 by Sandy Hector CM LUIS FERNANDO @ [phone] EXT [phone] / FAX: [phone]
[2019-09-11] MEDS: AZITHROMYCIN 250MG/NS 100 ML 100 ML IV SCH (20:00)
--- NOTE | 2019-09-11 20:07 | NUR ---
RECEIVED PT IN BED AOX3 .RESPIRATIONSA RE EVEN AND UNLABORED .IV IS OUT AND STARTED AN IV AT RT WRIST .PT DENIES PAIN .CALL LIGHT WITH IN REACH .CONTINUE TO MONITOR
[2019-09-11] MEDS: ATORVASTATIN 20 MG TAB PO SCH (20:58)
[2019-09-12] VITALS (9 sets, daily range): BP systolic 131–155; BP diastolic 64–87
[2019-09-12] MEDS ORDERED: BISACODYL 10 MG SUPP PR ONE (01:45)
--- NOTE | 2019-09-12 06:27 | NUR ---
PT RESTED DURING THE NIGHT .C/O CONSTIPATION .GIVEN DUCOLAX PER RECTUM .CALL LIGHT WITH IN REACH .CONTINUE TO MONITOR
[2019-09-12] MEDS: IRON SUCROSE 100 MG in SODIUM CHLORIDE 0.9% 100 ML 100 ML IV SCH (07:12)
--- NOTE | 2019-09-12 07:30 | NUR ---
BEDSIDE REPORT GIVEN TO THE ONCOMING NURSE .
[2019-09-12] MEDS: FERROUS SULFATE 325 MG TAB PO SCH (08:40)
[2019-09-12] MEDS: BENZONATATE 100 MG CAP PO SCH ×3 (08:40→22:01)
[2019-09-12] MEDS: GABAPENTIN 100 MG CAP PO SCH ×2 (08:40→17:45)
[2019-09-12] MEDS: SODIUM BICARBONATE 650 MG TAB PO SCH ×2 (08:40→17:45)
[2019-09-12] MEDS ORDERED: MANNITOL 25% 12.5GM/50 ML VIAL IV PRN (09:00)
[2019-09-12] MEDS ORDERED: HEPARIN SOD (PORCINE) 1000 UNIT/ML SDV IV PRN (09:00)
[2019-09-12] MEDS: HYDRALAZINE HCL 25 MG TAB PO SCH ×3 (09:00→21:59)
[2019-09-12] MEDS ORDERED: ALBUMIN 25% 12.5GM 0.25 GM/ML BTL IV PRN (09:00)
[2019-09-12] MEDS: NIFEDIPINE CR 30 MG TAB PO SCH ×2 (09:00→21:00)
[2019-09-12] MEDS: CARVEDILOL 12.5 MG TAB PO SCH ×2 (09:00→17:45)
--- NOTE | 2019-09-12 15:02 | NUR ---
FAXED UPDATES TO [facility]
--- NOTE | 2019-09-12 15:19 | Progress Note ---
DATE: 09/12/2019 Medicine Progress Note SUBJECTIVE: I am covering for Dr. Calderon Rose. The patient was admitted for underlying anemia and started on hemodialysis due to renal failure. He currently has a right-sided tunneled catheter placement. He is scheduled for hemodialysis as an outpatient. Nephrology is following. He is currently receiving hemodialysis during my evaluation. PHYSICAL EXAMINATION: VITAL SIGNS: Temperature is 97, pulse 76, respiratory rate is 20, blood pressure 151/84, pulse ox 97% on room air. GENERAL: Not in acute distress. Alert and oriented x3. Cooperative on examination. HEENT: Head; normocephalic, atraumatic. Eyes; pupils are equal, round, and reactive to light bilaterally. Extraocular movements intact bilaterally. Throat; no evidence of erythema or exudates in the posterior pharynx. Has poor dentition. NECK: Supple. Good range of motion. PULMONARY: Clear to auscultation bilaterally. No wheezing, no rales, no rhonchi, no crackles appreciated. CARDIOVASCULAR: Positive S1 and S2. No murmurs, rubs, or gallops appreciated. ABDOMEN: Soft, nondistended, and nontender to palpation. Bowel sounds present. MUSCULOSKELETAL: Strength is 5/5 throughout. No evidence of any muscle deficits on examination. No weakness appreciated. NEUROLOGIC: Cranial nerves 2 through 12 grossly intact. No evidence of any neurological deficits on exam. SKIN: Intact. Warm to touch. Good cap refill. PSYCHIATRIC: Normal affect and mood. EXTREMITIES: No edema. Good range of motion throughout. LABORATORY FINDINGS: Show white count 7.6, hemoglobin 8.6, hematocrit is 25.7, platelets of 176. Iron saturation 20%. Sodium 143, potassium 4.1, chloride 102, bicarb 29, anion gap of 16, BUN 39, creatinine 5.7. Vitamin B12 522. Urinalysis noted. MICROBIOLOGY: None. IMPRESSION: 1. End-stage renal disease on hemodialysis, currently on hemodialysis. 2. Acute diastolic heart failure. 3. Hypertension. 4. Severe anemia, likely due to underlying renal failure. 5. Shortness of breath, now resolved. PLAN: At this time, he is scheduled for hemodialysis today, which I evaluated. He is in the process of getting an outpatient hemodialysis chair time. Nephrology is following closely. His anemia is much improved after blood transfusion. Blood pressure is much more stable. Continue to monitor very closely. Get a.m. labs. Pulmonary and Cardiology are following very closely as well. No further workup needed by them. Get a.m. labs. Monitor closely. MD VERÓNICA Ocampo/DONNY /[id number]
[2019-09-12] MEDS: AZITHROMYCIN 250MG/NS 100 ML 100 ML IV SCH (18:53)
--- NOTE | 2019-09-12 20:34 | NUR ---
RECEIVED PT IN BED AOX3 PT HAD DIALYSIS TODAY .DENIES PAIN .CALL LIGHT WITH IN REACH .CONTINUE TO MONITOR
[2019-09-12] MEDS: ATORVASTATIN 40 MG TAB PO SCH (21:00)
--- NOTE | 2019-09-12 23:46 | Progress Note ---
DATE: 09/12/2019 Cardiology Progress Note. SUBJECTIVE: Denies any chest pain or shortness of breath. Right ankle discomfort is improving now minimal. OBJECTIVE: VITAL SIGNS: Temperature 97.7, heart rate 87, blood pressure 150/87, respiratory rate 20, O2 saturation 97% on room air, BMI 28. GENERAL: No acute distress, alert. NECK: No JVD. No carotid bruit. CHEST: Clear to auscultation. CARDIOVASCULAR: Regular rate and rhythm. Normal S1, S2. No S3 or S4. ABDOMEN: Soft. Bowel sounds positive. EXTREMITIES: No edema, warm distal extremities. He has a permanent dialysis catheter in place on the right side. CARDIOVASCULAR MEDICATIONS: Reviewed hydralazine 100 mg b.i.d., nifedipine 30 mg every 12 hours, atorvastatin 40 mg at bedtime, carvedilol 25 mg b.i.d. STUDIES: Reviewed potassium 4.1, chloride 102. Sodium 141, bicarbonate 29, BUN 39, creatinine 5.7, glucose 83. White blood cells 9.6, hemoglobin 8.6, platelets 176. ASSESSMENT AND PLAN: 1. This 73-year-old man presents with end-stage renal disease, newly declared. 2. Hypertension, uncontrolled. 3. Acute diastolic heart failure. 4. Anemia. 5. Right ankle gout. RECOMMEND: Continue current cardiovascular medications, particularly antihypertensives with notable improvement in blood pressure reads. Further dialysis plan over the next several days. We will address further adjustments to blood pressure medications based on continue improving blood pressure reads. MD JOSE ANTONIO Rubin/MODIva /[id number]
[2019-09-13] VITALS (9 sets, daily range): BP systolic 102–176; BP diastolic 55–94
--- NOTE | 2019-09-13 03:32 | Consultation ---
DATE OF CONSULTATION: 09/12/2019 REASON FOR CONSULT: End-stage renal failure, need for permanent dialysis access; requested by Dr. Kwon. HISTORY: I saw and evaluated the patient on September 12, 2019. He is a 73-year-old man with a history of hypertension, who has been followed for chronic renal insufficiency. He has been evaluated as an outpatient, apparently by Dr. Yoder. Dialysis had been recommended, but he has been holding off. He was admitted to [facility] with generalized malaise, dyspnea, and peripheral edema. BUN and creatinine were elevated. A right internal jugular tunneled catheter was placed and dialysis has been initiated. He has been tolerating dialysis without difficulty. No fevers or chills. The catheter is functioning well. Permanent dialysis access is now recommended. No clear history of coronary artery disease or chest pain. PAST MEDICAL HISTORY: Positive for anemia, chronic renal insufficiency, and hypertension. PAST SURGICAL HISTORY: Positive for cataract surgery. ALLERGIES: NONE. SOCIAL HISTORY: . Lives in [place]. No smoking, alcohol, or IV drug use. FAMILY HISTORY: Negative for early coronary artery disease or renal failure, but positive for hypertension. MEDICATIONS: See MAR. REVIEW OF SYSTEMS: General: Positive for fatigue and malaise. NEUROLOGIC: Negative for focal weakness in extremities or dysarthria. HEENT: Negative for decreased vision or decreased hearing. CARDIAC: Negative for chest pain, palpitation. PULMONARY: Positive for dyspnea as above. Now resolving. GI: No change in bowel habits, diarrhea, or constipation. : Negative for hematuria or dysuria. ENDOCRINE: Negative polyuria, polydipsia. VASCULAR: Negative for claudication. SKIN: Negative for rash. HEMATOLOGIC: Negative for clotting or bleeding. INFECTIOUS: Negative for fevers or sweating. PSYCHIATRIC: Negative for depression or anxiety. PHYSICAL EXAMINATION: GENERAL: A well-developed, well-nourished man, lying flat in bed. VITAL SIGNS: Blood pressure 140/70, pulse 80 and regular respirations 16 and unlabored. NECK: Supple and nontender. No JVD. CARDIAC: Shows a regular rate and rhythm. There is no audible murmur. LUNGS: Clear to auscultation and percussion bilaterally. ABDOMEN: Globoid, benign. Good bowel sounds. No hepatosplenomegaly. BACK: No CVA tenderness. No muscular spasm. EXTREMITIES: No cyanosis, clubbing, or edema. The forearm cephalic vein is borderline palpable bilaterally. Median antecubital vein is palpable bilaterally. The cephalic vein in the upper arm between the elbow and shoulder is also somewhat palpable. VASCULAR: Carotids 2+/2+ bilaterally. No carotid bruits. Radials, brachials, femorals 2+/2+ bilaterally. Ulnar is 1+/2+ bilaterally. SKIN: No rashes or nonhealing ulcers. MUSCULOSKELETAL: Full range of motion at all joints. No joint swelling. NEUROLOGIC: Cranial nerves II through XII intact. Sensation intact to light touch and pinprick bilaterally. Strength 5/5 all extremities. LYMPHATICS: Negative for cervical, clavicular, femoral adenopathy. LABORATORY AND IMAGING DATA: White count 8.6, hemoglobin 25.7 on 09/09/2019, but platelet count 176,000 on 09/08/2019. INR 1.01. PT 13.8, PTT 26.8. Sodium 143, potassium 4.1, BUN 39, creatinine 5.73. Imaging: No vein mapping available. IMPRESSION: I agree with the need for permanent dialysis access. Most likely, a left upper extremity brachiocephalic fistula will be his best option. I described the surgery to the patient. I told him that the risks of surgery would include , bleeding, infection, heart attack, stroke, pneumonia, prolonged ICU stay, mechanical ventilation, tracheostomy, permanent hand/limb muscle or nerve damage, hand/limb amputation, hand/limb chronic pain, a 10% to 15% chance of the fistula might not mature appropriately and require subsequent revision, further surgery, replacement, etc. The patient, who was by himself in his room, stated that he understood, no further questions, and wanted to proceed. Operation will be scheduled. Thank you much for asking me to see this nice man. MD JORGE Storey/MODIva /[id number]
[2019-09-13] MEDS: IRON SUCROSE 100 MG in SODIUM CHLORIDE 0.9% 100 ML 100 ML IV SCH (05:00)
[2019-09-13 06:14] LABS: BASOPHILS # (AUTO) 0.1 (0.0-0.1); BASOPHILS % 0.4 % (0.0-1.0); EOSINOPHILS # (AUTO) 0.3 (0.0-0.4); EOSINOPHILS % 2.7 % (0.0-6.0); HEMATOCRIT 29.5 % (38.2-49.6); LYMPHOCYTES % 17.5 % (18.0-39.1); MEAN CORPUSCULAR HEMOGLOBIN 28.5 pg (28-32); MEAN CORPUSCULAR HGB CONC 30.5 g/dL (31-35); MEAN CORPUSCULAR VOLUME 93.4 fL (81-99); MONOCYTES # (AUTO) 1.3 (0.2-0.8); MONOCYTES % 11.5 % (4.4-11.3); NEUTROPHILS # (AUTO) 7.4 (2.1-6.9); NEUTROPHILS % 65.3 % (38.7-80.0); PLATELET COUNT 215 x10e3/uL (140-360); RED BLOOD COUNT 3.16 x10e6/uL (4.3-5.7); RED CELL DISTRIBUTION WIDTH 14.6 % (11.7-14.4)
--- NOTE | 2019-09-13 06:25 | NUR ---
PT IS NPO FOR EGD .DENIES PAIN CALL LIGHT WITH IN REACH .CONTINUE TO MONITOR
[2019-09-13 06:33] LABS: ANION GAP 14.3 mmol/L (8-16); CALCIUM 7.7 mg/dL (8.4-10.2); CREATININE, SERUM 5.02 mg/dL (0.72-1.25); POTASSIUM 4.3 mmol/L (3.5-5.1)
--- NOTE | 2019-09-13 07:23 | NUR ---
BEDSIDE REPORT GIVEN TO THE ONCOMING NURSE
--- NOTE | 2019-09-13 07:40 | NUR ---
PATIENT IS ALERT AND IN STABLE CONDITION WITH NO S/S OF RESPIRATORY DISTRESS. NO PAIN VOICED. TELEMETRY APPLIED. PATIENT NPO FOR PROCEDURE TODAY. CALL LIGHT IS WITHIN REACH, PATIENT INSTRUCTED TO CALL FOR ASSISTANCE NEEDED.
[2019-09-13] MEDS: BENZONATATE 100 MG CAP PO SCH ×3 (08:22→21:51)
[2019-09-13] MEDS: SODIUM BICARBONATE 650 MG TAB PO SCH ×2 (08:22→16:28)
[2019-09-13] MEDS: HYDRALAZINE HCL 25 MG TAB PO SCH ×3 (08:22→21:00)
[2019-09-13] MEDS: GABAPENTIN 100 MG CAP PO SCH ×2 (08:22→16:28)
[2019-09-13] MEDS: CARVEDILOL 12.5 MG TAB PO SCH ×2 (08:23→16:28)
--- NOTE | 2019-09-13 09:00 | NUR ---
CALLED AND SPOKE WITH MIKE AT [facility] THIS MORNING SHE STATES SHE WILL SEND LUIS FERNANDO A REQUEST FOR LETTER HAS RECEIVED EVERYTHING REQUESTED. ALSO CONTACTED EMILI ONEAL TO ASSIST WITH GETTING INFORMATION
--- NOTE | 2019-09-13 10:46 | NUR ---
RECEIVED LETTER FROM [facility] PT WILL GO FOR DIALYSIS ON , AND WEDNESDAY AT 545PM PUT COPY OF LETTER IN CHART AND PRINTED 4 MORE COPIES FOR PT AND FAMILY GAVE TO PT IN ROOM.
--- NOTE | 2019-09-13 11:46 | Progress Note ---
DATE: 09/13/2019 Cardiology Progress Note SUBJECTIVE: Denies any chest pain. Denies any shortness of breath. OBJECTIVE: VITAL SIGNS: Temperature 98.1, heart rate 79, blood pressure 143/68, respiratory rate 18, and O2 saturation 94%. GENERAL: In no acute distress, alert. NECK: No JVD. CHEST: Clear to auscultation. CARDIOVASCULAR: Regular rate and rhythm. Normal S1, S2. ABDOMEN: Soft. Bowel sounds positive. EXTREMITIES: No edema. CARDIOVASCULAR MEDICATIONS: Reviewed. Hydralazine 100 mg t.i.d., nifedipine 10 mg every 12 hours, atorvastatin 40 mg at bedtime, ferrous sulfate 325 mg daily, carvedilol 25 mg b.i.d. STUDIES: Reviewed. Creatinine 5. Potassium 4.3, bicarbonate 26. Hemoglobin 9, white blood cells 11.3, and platelets 215. ASSESSMENT AND PLAN: A 73-year-old man, presents with newly declared end-stage renal disease, hypertension, acute diastolic heart failure, gout. RECOMMEND: Continue current cardiovascular medications and monitor H and H. Rajiv Proctor MD [facility]/MODL /[id number]
[2019-09-13] MEDS: SEVELAMER CARBONATE 800 MG TAB PO SCH ×2 (12:00→16:28)
[2019-09-13] MEDS: NIFEDIPINE CR 30 MG TAB PO SCH ×2 (12:18→21:51)
[2019-09-13] MEDS: EPOETIN ALFA 10000 UNIT/ML VIAL SC SCH (16:28)
[2019-09-13] MEDS: FERROUS SULFATE 325 MG TAB PO SCH (16:28)
[2019-09-13] MEDS ORDERED: PROPOFOL IV EMULSION 10 MG/ML 20 ML VIAL ONE (18:22)
[2019-09-13] MEDS ORDERED: KETAMINE HCL INJ 50 MG/ML 10 ML VIAL ONE (18:55)
[2019-09-13] MEDS: AZITHROMYCIN 250MG/NS 100 ML 100 ML IV SCH (19:00)
--- NOTE | 2019-09-13 19:28 | NUR ---
PATIENT IS IN STABLE CONDITION WITH NO S/S OF RESPIRATORY DISTRESS-NO PAIN VOICED. TELEMETRY APPLIED. CALL LIGHT IS WITHIN REACH, PATIENT INSTRUCTED TO CALL FOR ASSISTANCE NEEDED. REPORT GIVEN TO ONCOMING NURSE.
--- NOTE | 2019-09-13 19:57 | NUR ---
RECEIVED PT IN BED AOX3 .PT HAD EGD TODAY NOTED ESOPHAGITIS HIATAL HERNIA AND GASTRITIS .CALL LIGHT WITH IN REACH.CONTINUE TO MONITOR
[2019-09-13] MEDS: ATORVASTATIN 40 MG TAB PO SCH (21:48)
--- NOTE | 2019-09-13 23:04 | Operative Report ---
DATE OF PROCEDURE: 09/13/2019 SURGEON: Juan Prabhakar MD PROCEDURE: EGD with biopsies. INDICATIONS FOR EGD: Anemia. MEDICATIONS: The patient was done under MAC. Please see anesthesiologist's note. PROCEDURE IN DETAIL: With the patient in left lateral decubitus position, a flexible fiberoptic Olympus gastroscope was introduced into the esophagus under direct visualization without any difficulty. There was some patchy erythema noted in the distal esophagus. Minute tongues of velvety red mucosa were noted to extend proximally from the GE junction. Biopsies were obtained to rule out Marshall's. The scope was then advanced with ease into the stomach, traversing a moderate-sized hiatal hernia. Mucosa overlying the antrum and the body revealed some patchy erythema and moderate edema and biopsies were obtained and sent to stain for H pylori. The pylorus was of normal contour and shape, was intubated with ease and the scope was advanced all the way to the second portion of the duodenum. The mucosa overlying the proximal second portion appeared to be within normal limits. There were some patchy mild inflammatory changes noted in the duodenal bulb. The scope was then withdrawn back into the stomach and retroflexed and mucosa overlying the fundus and cardia appeared to be within normal limits. The scope was then straightened out it was subsequently withdrawn, the patient tolerated the procedure well. IMPRESSION: 1. Distal esophagitis, mild. 2. Rule out Marshall esophagus. 3. Moderate-sized hiatal hernia. 4. Gastritis, biopsied. Biopsies sent to stain for Helicobacter pylori. 5. Duodenitis, mild, bulb. PLAN: Followup Histology. Initiate Protonix 40 mg 1 p.o. q.a.m. before meals. Juan Prabhakar MD [facility]/MODL /[id number] cc: MD Calderon Morales MD
--- NOTE | 2019-09-13 23:50 | Progress Note ---
DATE: 09/13/2019 Medicine Progress Note SUBJECTIVE: The patient underwent an EGD late this afternoon. Apparently, Nephrology consulted Vascular Surgery for a fistula, which I think can be done as an outpatient. Once I reviewed the chart tomorrow, the patient will be discharged if he is stable. PHYSICAL EXAMINATION: VITAL SIGNS: He is afebrile. Pulse 84, respiratory rate is 20, blood pressure 167/78, and pulse ox 96% on room air. GENERAL: Not in acute distress. Alert and oriented x3. Cooperative on examination. HEENT: Head; normocephalic and atraumatic. Eyes; pupils are equal, round, and reactive to light bilaterally. Extraocular movements intact bilaterally. Throat; no evidence of any erythema or exudates in the posterior pharynx. Has poor dentition. NECK: Supple. Good range of motion. PULMONARY: Clear to auscultation bilaterally. No wheezing, no rales, no rhonchi, no crackles appreciated. CARDIOVASCULAR: Positive S1 and S2. No murmurs, rubs, or gallops appreciated. ABDOMEN: Soft, nondistended, and nontender to palpation. Bowel sounds present. MUSCULOSKELETAL: Strength is 5/5 throughout. No evidence of any muscle deficits on examination. No weakness appreciated. NEUROLOGIC: Cranial nerve 2 through 12 grossly intact. No evidence of any neurological deficits on exam. SKIN: Intact. Warm to touch. Good cap refill. PSYCHIATRIC: Normal affect and mood. EXTREMITIES: No edema. Good range of motion throughout. LABORATORY DATA: Lab findings show WBCs 11, hemoglobin 9, hematocrit 29, and platelets of 215. Chemistries were reviewed. IMPRESSION: 1. End-stage renal disease on hemodialysis. 2. Acute diastolic heart failure. 3. Hypertension. 4. Severe anemia secondary to renal failure, status post esophagogastroduodenoscopy performed late today on 09/13/2019, needing final results. 5. Shortness of breath-resolved. PLAN: At this time, hemodialysis is scheduled for tomorrow. He is scheduled for EGD later today, which was already performed, but I needed the final results. We are going to just repeat labs in the morning. Monitor him overnight. If he is stable, I will discharge him tomorrow. MD VERÓNICA Ocampo/MODL /[id number]
[2019-09-14 00:18] VITALS: BP 128/59
[2019-09-14 00:57] VITALS: BP 128/59
[2019-09-14 04:10] VITALS: BP 130/61
[2019-09-14] MEDS: IRON SUCROSE 100 MG in SODIUM CHLORIDE 0.9% 100 ML 100 ML IV SCH (04:52)
--- NOTE | 2019-09-14 05:53 | NUR ---
PT RESTED DURING THE NIGHT .DENIES PAIN WAITING DR PERALTA TO D/C THE PT .NO ACUTE DISTRESS NOTED .CALL LIGHT WITH IN REACH .CONTINUE TO MONITOR
[2019-09-14 06:23] LABS: BASOPHILS # (AUTO) 0.1 (0.0-0.1); BASOPHILS % 0.5 % (0.0-1.0); EOSINOPHILS # (AUTO) 0.4 (0.0-0.4); EOSINOPHILS % 3.3 % (0.0-6.0); HEMATOCRIT 30.4 % (38.2-49.6); HEMOGLOBIN 9.5 g/dL (14.0-18.0); LYMPHOCYTES # (AUTO) 1.8 (1.0-3.2); LYMPHOCYTES % 15.7 % (18.0-39.1); MEAN CORPUSCULAR HEMOGLOBIN 29.6 pg (28-32); MEAN CORPUSCULAR HGB CONC 31.3 g/dL (31-35); MEAN CORPUSCULAR VOLUME 94.7 fL (81-99); MONOCYTES # (AUTO) 1.2 (0.2-0.8); MONOCYTES % 10.7 % (4.4-11.3); NEUTROPHILS # (AUTO) 7.8 (2.1-6.9); NEUTROPHILS % 67.5 % (38.7-80.0); PLATELET COUNT 208 x10e3/uL (140-360); RED BLOOD COUNT 3.21 x10e6/uL (4.3-5.7); RED CELL DISTRIBUTION WIDTH 14.6 % (11.7-14.4)
[2019-09-14 06:39] LABS: ANION GAP 13.6 mmol/L (8-16); CREATININE, SERUM 5.94 mg/dL (0.72-1.25); POTASSIUM 4.6 mmol/L (3.5-5.1)
[2019-09-14 07:05] VITALS: BP 134/69
--- NOTE | 2019-09-14 07:10 | NUR ---
BEDSIDE REPORT GIVEN TO THE ONCOMING NURSE
[2019-09-14] MEDS ORDERED: PANTOPRAZOLE SOD 40 MG TABEC PO SCH (07:30)
[2019-09-14 08:00] VITALS: BP 134/69
[2019-09-14] MEDS: SEVELAMER CARBONATE 800 MG TAB PO SCH ×2 (08:13→12:29)
[2019-09-14] MEDS: FERROUS SULFATE 325 MG TAB PO SCH (08:14)
[2019-09-14] MEDS: CARVEDILOL 12.5 MG TAB PO SCH (08:14)
[2019-09-14] MEDS: HYDRALAZINE HCL 25 MG TAB PO SCH (08:14)
[2019-09-14] MEDS: GABAPENTIN 100 MG CAP PO SCH (08:14)
[2019-09-14] MEDS: NIFEDIPINE CR 30 MG TAB PO SCH (08:15)
[2019-09-14] MEDS: BENZONATATE 100 MG CAP PO SCH (08:15)
[2019-09-14] MEDS: SODIUM BICARBONATE 650 MG TAB PO SCH (08:15)
--- NOTE | 2019-09-14 11:25 | Progress Note ---
DATE: 09/14/2019 SUBJECTIVE: Denied any dyspnea today. No nausea or vomiting. Had an EGD. Has already seen Dr. Ramírez for potential access. PHYSICAL EXAMINATION: GENERAL: Sitting up, in no distress. VITAL SIGNS: Temperature 96.9, pulse 76, and blood pressure 130/61. CHEST: Clear. EXTREMITIES: No edema. Normal heart tones. Question S4. ASSESSMENT: 1. End-stage renal disease. 2. Hypertension. 3. Anemia with iron deficiency, status post endoscopy PLAN: 1. Hemodialysis today. 2. Please see my orders. 3. He will complete consent forms with the outpatient unit today and resume dialysis there. 4. We will follow as an outpatient. 5. For the time being, I will leave on a sodium bicarbonate. Osman Engel MD [facility]/MODL /[id number]
--- NOTE | 2019-09-14 11:30 | NUR ---
IMM LETTER EXPLAINED TO PT. PT VERBALIZED UNDERSTANDING. IMM LETTER SIGNED. COPY TO PT AND COPY TO CHART.
[2019-09-14 11:53] VITALS: BP 143/72
[2019-09-14] MEDS ORDERED: HEPARIN SOD (PORCINE) 1000 UNIT/ML SDV IV PRN (12:30)
--- NOTE | 2019-09-14 12:31 | NUR ---
PATIENT COMPLETED DIALYSIS: 2.5 LITERS REMOVED. PATIENT IS IN STABLE CONDITION WITH NO S/S OF RESPIRATORY DISTRESS.
--- NOTE | 2019-09-14 15:05 | NUR ---
Received DC order from MD. Patient is in stable condition. IV line to right wrist discontinued with tip intact, pressure applied to site, no bleeding noted. Discharge teaching provided to patient, he verbalized understanding. Discharge folder with prescriptions on hand, personal items on hand. Patient accompanied to private auto by staff.
--- NOTE | 2019-09-15 14:29 | Discharge Summary ---
FINAL DISCHARGE DIAGNOSES: 1. New diagnosis of end-stage renal disease, started on hemodialysis. 2. Acute diastolic heart failure. 3. Hypertension. 4. Severe anemia secondary to renal failure, also status post EGD performed on 09/13/2019, that showed distal esophagitis, moderate-sized hiatal hernia and gastritis with duodenitis. 5. Shortness of breath secondary to pulmonary edema and anemia-resolved. CONSULTANTS: Nephrology, Cardiology, Cardiovascular Surgery, and GI. PHYSICAL EXAMINATION: VITAL SIGNS: Temperature is 97.1, pulse 72, respiratory rate 16, blood pressure 143/72, and pulse ox 98% on room air. LABORATORY DATA: Labs show WBC is 11, hemoglobin 9.5, on admission his hemoglobin was 6.3, given blood transfusion with a discharge hemoglobin 9.5, hematocrit 30, and platelets of 208. Coagulation; PT 13, INR 1, and PTT 26. Chemistry; sodium 139, potassium 4.6, chloride 104, bicarb 26, anion gap of 13, BUN is 49, creatinine is 5.9, glucose is 118, uric acid is 3.1, calcium 8, and phosphorus is 5.3. Iron saturation was 20%. LFTs within normal range. Troponins were negative. Albumin was 2.7. LDL was 204. Vitamin B12 was 522 and total protein was 5.9. Urinalysis noted. Stool occult blood negative. Hepatitis panel was negative. Influenza was negative. Hepatitis B was negative. Influenza A/B antigen negative. MICROBIOLOGY: None. IMAGING STUDIES: He had a chest x-ray showed some mild CHF with bibasilar atelectasis and small pleural effusion. Showed some resolution of the pulmonary edema on repeat chest x-ray on 09/10/2019. HOSPITAL COURSE: This is a 73-year-old male, who came into the ED with underlying shortness of breath and found to be anemic with underlying pulmonary edema. The patient had known chronic kidney disease, presumed to be from underlying hypertension according to Nephrology's note. The patient was found to be hyperkalemic, respiratory distress, and metabolic acidosis prompting stat Nephrology consultation. The patient was admitted to the ICU and Pulmonary Critical Care. The patient received hemodialysis in the ICU on several rounds with much improvement. According to Nephrology's note, the patient agreed to hemodialysis long-term and a tunneled dialysis catheter was placed. Nephrology consulted with Cardiovascular Surgery for AV fistula creation, but the patient refused at this time and wants to have his AV fistula creation on October 05, after the holidays. I discussed with Dr. Ramírez and Nephrology. The patient was found to be anemic, requiring blood transfusion and a GI consultation. The patient's hemoglobin on discharge was 9.5. EGD report performed on 09/13/2019, showed evidence of a distal esophagitis, moderate-sized hiatal hernia, gastritis, and duodenitis. Biopsies were performed and the patient was advised to follow up with Dr. Prabhakar as an outpatient in 2 weeks to get the final pathology results. The patient verbalized understanding. The patient was also treated with antibiotics for probable presumed to be pneumonia. As for the consultants, the patient from Nephrology standpoint had a hemodialysis chair time scheduled and will follow up as an outpatient with Vascular Surgery for AV fistula creation. No further workup needed by Pulmonary. As per GI, the patient was cleared for discharge. As per Cardiology, the patient has known history of diastolic heart failure and recommended no further intervention at this time. The patient was cleared for discharge by all consultants. The patient's blood pressure medications were adjusted accordingly. On the day of discharge, vital signs were stable, labs reviewed and stable. The patient is seen and evaluated, and examined thoroughly on the day of discharge. No other complaints. The patient verbalized understanding and agrees to plan of care to follow up accordingly as an outpatient with the primary care physician in 1 week, GI in 2 weeks for pathology results, Cardiovascular Surgery on October 05 for AV fistula creation, and to follow up with his normal hemodialysis chair time is scheduled. Of note, his first dialysis treatment is today 09/14/2019 at 5:45 p.m. at [facility]. The patient was educated on followup with all the appropriate consulted and he verbalized understanding and agrees to plan of care. MEDICATIONS: See med reconciliation form. DISPOSITION: Home. CONDITION: Stable. DIET: Heart healthy. In the event of any worsening symptoms, the patient was advised to come back to the ED for further evaluation. Discharge summary took greater than 35 minutes. MD VERÓNICA Ocampo/MODL /[id number]
[2019-10-13] MEDS ORDERED: ASPIR 8181 MG PO (09:21)
[2019-10-13] MEDS ORDERED: HYDRALAZINE HCL25 MG PO (09:21)
[2019-10-13] MEDS ORDERED: PANTOPRAZOLE SO20 MG PO (09:22)
[2019-10-13] MEDS ORDERED: SODIUM BICARBO650 MG PO (09:22)
[2019-10-13] MEDS ORDERED: RENVELA0.8 GM PO (09:22)
[2019-10-13] MEDS ORDERED: ATORVASTATIN CA20 MG PO (09:23)
== END 2019-09-14 15:06 | disposition home or self-care (01) | DRG 291 ==
LOC: ER 15:57 → ERHOLD 17:07 → ICU 21:31 → OBSVTOIN 09-08 12:09 → MED/SURG3 09-08 21:54
PROVIDERS: ADMIT Internal Medicine; ATTEND Internal Medicine
PROC: 5A1D70Z Performance of Urinary Filtration, Intermittent, Less than 6 Hours Per Day (ICD-10-PCS; 2019-09-07)
PROC: 02HV33Z Insertion of Infusion Device into Superior Vena Cava, Percutaneous Approach (ICD-10-PCS; 2019-09-07)
PROC: 0DB78ZX Excision of Stomach, Pylorus, Via Natural or Artificial Opening Endoscopic, Diagnostic (ICD-10-PCS; 2019-09-07)
PROC: 30243N1 Transfusion of Nonautologous Red Blood Cells into Central Vein, Percutaneous Approach (ICD-10-PCS; 2019-09-07)
PROC: 0JH63XZ Insertion of Tunneled Vascular Access Device into Chest Subcutaneous Tissue and Fascia, Percutaneous Approach (ICD-10-PCS; principal; 2019-09-11)
PROC: 02HV33Z Insertion of Infusion Device into Superior Vena Cava, Percutaneous Approach (ICD-10-PCS; 2019-09-11)
DX: I13.2 Hypertensive heart and chronic kidney disease with heart failure and with stage 5 chronic kidney disease, or end stage renal disease (principal); I50.31 Acute diastolic (congestive) heart failure; N18.6 End stage renal disease; E87.2 Acidosis; I16.9 Hypertensive crisis, unspecified; N17.9 Acute kidney failure, unspecified; Z99.2 Dependence on renal dialysis; K21.9 Gastro-esophageal reflux disease without esophagitis; M10.9 Gout, unspecified; D63.8 Anemia in other chronic diseases classified elsewhere; D63.1 Anemia in chronic kidney disease; D50.9 Iron deficiency anemia, unspecified
CPT/HCPCS: 36415; 36556; 36558; 43239; 71045; 71046; 74470; 76937; 77001; 80048; 80053; 80061; 81001; 82270; 82550; 82553; 82607; 82728; 82948; 83036; 83540; 83735; 83880; 84100; 84466; 84484; 84550; 85007; 85014; 85018; 85025; 85027; 85045; 85610; 85730; 86705; 86706; 86850; 86900; 86920; 87340; 87400; 88305; 88312; 90962; 93005; 99284; C1769; G0378; J1644; J1756; J1940; J2001; J2250; J2405; J2920; J3010; J7030; J7050; P9016; Q4081

== ENCOUNTER 2022-02-06 11:50 | Inpatient (IN) | payer MEDICARE, OTHER ==
[~2022-02-06] VITALS: Ht 160 cm; Wt 71.2 kg
[~2022-02-06 11:50] MED LIST: ASPIR 8181 MG PO; ATORVASTATIN CA20 MG PO; BUMETANIDE2 MG PO; CARVEDILOL25 MG PO; HYDRALAZINE HCL25 MG PO; HYDRALAZINE HCL50 MG PO; NIFEDIPINE ER30 MG PO; PANTOPRAZOLE SO20 MG PO; RENVELA0.8 GM PO; SODIUM BICARBO650 MG PO
[2022-02-06 12:17] LABS: BASOPHILS % 0.2 % (0.0-1.0); EOSINOPHILS # (AUTO) 0.1 (0.0-0.4); EOSINOPHILS % 0.6 % (0.0-6.0); HEMATOCRIT 34.4 % (38.2-49.6); HEMOGLOBIN 10.6 g/dL (14.0-18.0); LYMPHOCYTES # (AUTO) 0.6 (1.0-3.2); LYMPHOCYTES % 3.3 % (18.0-39.1); MEAN CORPUSCULAR HEMOGLOBIN 30.5 pg (28-32); MEAN CORPUSCULAR HGB CONC 30.8 g/dL (31-35); MEAN CORPUSCULAR VOLUME 99.1 fL (81-99); MONOCYTES # (AUTO) 0.4 (0.2-0.8); MONOCYTES % 2.5 % (4.4-11.3); NEUTROPHILS % 92.1 % (38.7-80.0); PLATELET COUNT 241 x10e3/uL (140-360); RED BLOOD COUNT 3.47 x10e6/uL (4.3-5.7); RED CELL DISTRIBUTION WIDTH 17.2 % (11.7-14.4)
[2022-02-06] MEDS: SODIUM CHLORIDE 0.9% 1000ML 1,000 ML IV SCH ×2 (12:28→20:00)
[2022-02-06 12:30] LABS: AMYLASE 130 U/L (25-125); LIPASE 97 U/L (8-78)
[2022-02-06 12:32] LABS: ALBUMIN 3.3 g/dL (3.5-5.0); ALBUMIN/GLOBULIN RATIO 1.1 (0.8-2.0); CREATININE, SERUM 4.27 mg/dL (0.72-1.25)
[2022-02-06] MEDS ORDERED: ACETAMINOPHEN 325 MG TAB PO ONE (12:45)
[2022-02-06] MEDS ORDERED: SODIUM CHLORIDE 0.9% 500ML 500 ML IV ONE (13:00)
[2022-02-06] MEDS ORDERED: Vancomycin IV 1 GM in SODIUM CHLORIDE 0.9% 250ML 250 ML IV ONE (13:30)
[2022-02-06] MEDS ORDERED: METRONIDAZOLE 500MG/NS 100ML 100 ML IV ONE (13:45)
[2022-02-06 14:33] LABS: CLARITY,URINE CLEAR (CLEAR); COLOR,URINE YELLOW (YELLOW); KETONES,URINE NEGATIVE (NEGATIVE); LEUKOCYTE ESTERASE ,URINE NEGATIVE (NEGATIVE); NITRITE,URINE NEGATIVE (NEGATIVE); PROTEIN,URINE DIPSTICK >=300 (NEGATIVE); URINE UROBILINOGEN 0.2 mg/dL (0.2 - 1)
[2022-02-06 14:39] LABS: BACTERIA,URINE RARE /HPF; WBC,URINE (MAN) 0-5 /HPF (0-5)
[2022-02-06] MEDS ORDERED: ONDANSETRON HCL INJ 2MG/ML 2ML 2 MG/ML VIAL IV PRN (15:00)
[2022-02-06] MEDS ORDERED: SODIUM CHLORIDE FLUSH 10 ML SYR INJ PRN (15:00)
[2022-02-06 17:53] VITALS: BP 143/63
[2022-02-06 17:54] VITALS: BP 143/63
[2022-02-06 17:55] VITALS: BP 143/63
[2022-02-06] MEDS ORDERED: FLOMAX0.4 MG PO (18:30)
[2022-02-06 19:15] VITALS: BP 144/59
[2022-02-06] MEDS: HYDRALAZINE HCL 25 MG TAB PO SCH (21:00)
[2022-02-06 22:00] VITALS: BP 143/64
[2022-02-06] MEDS: METRONIDAZOLE 500MG/NS 100ML 100 ML IV SCH (22:09)
[2022-02-06] MEDS: ATORVASTATIN 40 MG TAB PO SCH (22:09)
[2022-02-06] MEDS: TAMSULOSIN HCL 0.4 MG CAP PO SCH (22:09)
[2022-02-06] MEDS: SEVELAMER CARBONATE 800 MG TAB PO SCH (22:09)
[2022-02-06 23:00] VITALS: BP 140/60
[2022-02-07] VITALS (23 sets, daily range): BP systolic 133–167; BP diastolic 59–80
[2022-02-07 04:54] LABS: BASOPHILS % 0.2 % (0.0-1.0); EOSINOPHILS # (AUTO) 0.3 (0.0-0.4); EOSINOPHILS % 1.4 % (0.0-6.0); HEMATOCRIT 31.7 % (38.2-49.6); HEMOGLOBIN 9.7 g/dL (14.0-18.0); LYMPHOCYTES # (AUTO) 1.3 (1.0-3.2); LYMPHOCYTES % 6.6 % (18.0-39.1); MEAN CORPUSCULAR HEMOGLOBIN 31.1 pg (28-32); MEAN CORPUSCULAR HGB CONC 30.6 g/dL (31-35); MEAN CORPUSCULAR VOLUME 101.6 fL (81-99); MONOCYTES # (AUTO) 0.8 (0.2-0.8); MONOCYTES % 4.1 % (4.4-11.3); NEUTROPHILS # (AUTO) 16.8 (2.1-6.9); NEUTROPHILS % 86.6 % (38.7-80.0); PLATELET COUNT 191 x10e3/uL (140-360); RED BLOOD COUNT 3.12 x10e6/uL (4.3-5.7); RED CELL DISTRIBUTION WIDTH 17.4 % (11.7-14.4)
[2022-02-07 05:15] LABS: ALBUMIN 2.8 g/dL (3.5-5.0); ANION GAP 14.4 mmol/L (8-16); CALCIUM 10.3 mg/dL (8.4-10.2); CREATININE, SERUM 5.07 mg/dL (0.72-1.25); POTASSIUM 4.4 mmol/L (3.5-5.1)
[2022-02-07] MEDS: SODIUM CHLORIDE 0.9% 1000ML 1,000 ML IV SCH (05:36)
[2022-02-07] MEDS: METRONIDAZOLE 500MG/NS 100ML 100 ML IV SCH ×3 (05:39→22:09)
[2022-02-07 06:03] LABS: CHOL/HDL RATIO 2.2 (3.9-4.7)
[2022-02-07] MEDS: ACETAMINOPHEN 325 MG TAB PO PRN (06:14)
[2022-02-07 06:23] LABS: THYROID STIMULATING HORMONE 1.1 uIU/mL (0.350-4.940)
[2022-02-07 07:08] LABS: FERRITIN 1859.93 ng/mL (21.81-274.66)
[2022-02-07] MEDS ORDERED: ONDANSETRON HCL INJ 2MG/ML 2ML 2 MG/ML VIAL IV PRN (08:00)
[2022-02-07] MEDS ORDERED: POLYETHYLENE GLYCOL 3350 17 GM PACK PO PRN (08:00)
[2022-02-07] MEDS: SEVELAMER CARBONATE 800 MG TAB PO SCH ×3 (09:10→20:16)
[2022-02-07] MEDS: HYDRALAZINE HCL 25 MG TAB PO SCH ×3 (09:10→21:00)
[2022-02-07] MEDS: ASPIRIN 81 MG CHEW TAB PO SCH (09:10)
[2022-02-07] MEDS: SODIUM BICARBONATE 650 MG TAB PO SCH ×2 (09:10→17:03)
[2022-02-07] MEDS: IRON SUCROSE 100 MG in SODIUM CHLORIDE 0.9% 100 ML 100 ML IV SCH (10:03)
[2022-02-07] MEDS ORDERED: SODIUM CHLORIDE 0.9% 1000ML 2,000 ML ONE (14:31)
[2022-02-07] MEDS: TAMSULOSIN HCL 0.4 MG CAP PO SCH (20:16)
[2022-02-07] MEDS: ATORVASTATIN 40 MG TAB PO SCH (20:16)
[2022-02-08] VITALS (15 sets, daily range): BP systolic 141–167; BP diastolic 58–72
[2022-02-08] MEDS: BENZONATATE 100 MG CAP PO PRN ×2 (02:47→08:17)
[2022-02-08 05:25] LABS: BASOPHILS % 0.3 % (0.0-1.0); EOSINOPHILS # (AUTO) 0.4 (0.0-0.4); EOSINOPHILS % 3.2 % (0.0-6.0); HEMATOCRIT 31.5 % (38.2-49.6); HEMOGLOBIN 9.8 g/dL (14.0-18.0); LYMPHOCYTES # (AUTO) 1.6 (1.0-3.2); LYMPHOCYTES % 13.3 % (18.0-39.1); MEAN CORPUSCULAR HEMOGLOBIN 30.8 pg (28-32); MEAN CORPUSCULAR HGB CONC 31.1 g/dL (31-35); MEAN CORPUSCULAR VOLUME 99.1 fL (81-99); MONOCYTES # (AUTO) 0.8 (0.2-0.8); MONOCYTES % 6.8 % (4.4-11.3); NEUTROPHILS # (AUTO) 8.8 (2.1-6.9); NEUTROPHILS % 75.4 % (38.7-80.0); PLATELET COUNT 180 x10e3/uL (140-360); RED BLOOD COUNT 3.18 x10e6/uL (4.3-5.7); RED CELL DISTRIBUTION WIDTH 17.3 % (11.7-14.4)
[2022-02-08] MEDS: HYDRALAZINE HCL 20 MG/ML VIAL IV PRN (05:36)
[2022-02-08] MEDS: METRONIDAZOLE 500MG/NS 100ML 100 ML IV SCH ×3 (05:36→22:13)
[2022-02-08] MEDS: HYDRALAZINE HCL 25 MG TAB PO SCH ×4 (05:39→20:14)
[2022-02-08 05:45] LABS: ANION GAP 11.9 mmol/L (8-16); CALCIUM 8.2 mg/dL (8.4-10.2); CREATININE, SERUM 4.03 mg/dL (0.72-1.25); POTASSIUM 3.9 mmol/L (3.5-5.1)
[2022-02-08 06:04] LABS: MAGNESIUM 2.1 MG/DL (1.3-2.1); PHOSPHORUS 2.5 MG/DL (2.3-4.7)
[2022-02-08 06:25] LABS: THYROID STIMULATING HORMONE 3.449 uIU/mL (0.350-4.940)
[2022-02-08] MEDS: SEVELAMER CARBONATE 800 MG TAB PO SCH ×3 (08:17→20:14)
[2022-02-08] MEDS: ASPIRIN 81 MG CHEW TAB PO SCH (08:17)
[2022-02-08] MEDS: IRON SUCROSE 100 MG in SODIUM CHLORIDE 0.9% 100 ML 100 ML IV SCH (08:17)
[2022-02-08] MEDS: SODIUM BICARBONATE 650 MG TAB PO SCH ×2 (08:17→16:48)
[2022-02-08] MEDS ORDERED: BENZONATATE 100 MG CAP PO PRN (09:15)
[2022-02-08] MEDS: TAMSULOSIN HCL 0.4 MG CAP PO SCH (20:14)
[2022-02-08] MEDS: ATORVASTATIN 40 MG TAB PO SCH (20:14)
[2022-02-08] MEDS: GUAIFENESIN/CODEINE 5 ML LIQD PO PRN (21:33)
[2022-02-09] VITALS (18 sets, daily range): BP systolic 140–170; BP diastolic 63–84
[2022-02-09] MEDS: HYDRALAZINE HCL 20 MG/ML VIAL IV PRN ×2 (00:16→12:06)
[2022-02-09] MEDS: ACETAMINOPHEN 325 MG TAB PO PRN (01:37)
[2022-02-09] MEDS: METRONIDAZOLE 500MG/NS 100ML 100 ML IV SCH ×3 (05:49→21:24)
[2022-02-09] MEDS: ASPIRIN 81 MG CHEW TAB PO SCH (08:18)
[2022-02-09] MEDS: HYDRALAZINE HCL 25 MG TAB PO SCH ×3 (08:18→20:55)
[2022-02-09] MEDS: SODIUM BICARBONATE 650 MG TAB PO SCH ×2 (08:19→17:05)
[2022-02-09] MEDS: SEVELAMER CARBONATE 800 MG TAB PO SCH ×2 (08:19→15:08)
[2022-02-09] MEDS: IRON SUCROSE 100 MG in SODIUM CHLORIDE 0.9% 100 ML 100 ML IV SCH (09:12)
[2022-02-09 16:10] LABS: OCCULT BLOOD STOOL NEGATIVE (NEGATIVE)
[2022-02-09] MEDS: ATORVASTATIN 40 MG TAB PO SCH (20:55)
[2022-02-09] MEDS: TAMSULOSIN HCL 0.4 MG CAP PO SCH (20:55)
[2022-02-09] MEDS: GUAIFENESIN/CODEINE 5 ML LIQD PO PRN (20:55)
[2022-02-09] MEDS ORDERED: SODIUM CHLORIDE 0.9% 250ML 250 ML ONE (21:21)
[2022-02-10] VITALS (8 sets, daily range): BP systolic 131–159; BP diastolic 65–72
[2022-02-10] MEDS: METRONIDAZOLE 500MG/NS 100ML 100 ML IV SCH ×2 (06:23→16:07)
[2022-02-10] MEDS: IRON-VITAMIN-MINERAL CAPSULE PO SCH (08:12)
[2022-02-10] MEDS: SEVELAMER CARBONATE 800 MG TAB PO SCH ×3 (08:12→16:51)
[2022-02-10] MEDS: ASPIRIN 81 MG CHEW TAB PO SCH (08:12)
[2022-02-10] MEDS: SODIUM BICARBONATE 650 MG TAB PO SCH ×2 (08:12→16:51)
[2022-02-10] MEDS: HYDRALAZINE HCL 25 MG TAB PO SCH ×3 (08:17→20:55)
[2022-02-10] MEDS ORDERED: SODIUM CHLORIDE 0.9% 1000ML 2,000 ML ONE (09:35)
[2022-02-10 12:41] LABS: C DIFFICILE TOXIN A&B AMP PROB NEGATIVE (NEGATIVE)
[2022-02-10] MEDS: GUAIFENESIN/CODEINE 5 ML LIQD PO PRN ×2 (15:17→22:30)
[2022-02-10 17:52] LABS: CLARITY,URINE CLEAR (CLEAR); COLOR,URINE YELLOW (YELLOW)
[2022-02-10 17:53] LABS: KETONES,URINE NEGATIVE (NEGATIVE); LEUKOCYTE ESTERASE ,URINE NEGATIVE (NEGATIVE); NITRITE,URINE NEGATIVE (NEGATIVE); PROTEIN,URINE DIPSTICK >=300 (NEGATIVE); URINE UROBILINOGEN 0.2 mg/dL (0.2 - 1)
[2022-02-10 18:09] LABS: BACTERIA,URINE MODERATE /HPF; EPITHELIAL CELLS,URINE FEW /LPF; WBC,URINE (MAN) 0-5 /HPF (0-5)
[2022-02-10 18:11] LABS: RBC,URINE >50 /HPF (0-5)
[2022-02-10] MEDS: ATORVASTATIN 40 MG TAB PO SCH (20:55)
[2022-02-10] MEDS: TAMSULOSIN HCL 0.4 MG CAP PO SCH (20:55)
[2022-02-10] MEDS ORDERED: METRONIDAZOLE 500MG/NS 100ML 100 ML IV SCH (23:59)
[2022-02-11 01:17] VITALS: BP 140/70
[2022-02-11 05:56] VITALS: BP 140/67
[2022-02-11 07:19] LABS: BASOPHILS # (AUTO) 0.1 (0.0-0.1); BASOPHILS % 0.8 % (0.0-1.0); EOSINOPHILS % 9.6 % (0.0-6.0); HEMATOCRIT 31.4 % (38.2-49.6); HEMOGLOBIN 9.6 g/dL (14.0-18.0); LYMPHOCYTES % 19.8 % (18.0-39.1); MEAN CORPUSCULAR HEMOGLOBIN 30.7 pg (28-32); MEAN CORPUSCULAR HGB CONC 30.6 g/dL (31-35); MEAN CORPUSCULAR VOLUME 100.3 fL (81-99); MONOCYTES % 9.9 % (4.4-11.3); NEUTROPHILS % 59.1 % (38.7-80.0); PLATELET COUNT 180 x10e3/uL (140-360); RED BLOOD COUNT 3.13 x10e6/uL (4.3-5.7); RED CELL DISTRIBUTION WIDTH 18.4 % (11.7-14.4)
[2022-02-11 07:45] LABS: ALBUMIN 2.9 g/dL (3.5-5.0); ALBUMIN/GLOBULIN RATIO 0.9 (0.8-2.0); ANION GAP 12.9 mmol/L (8-16); CALCIUM 7.7 mg/dL (8.4-10.2); CREATININE, SERUM 5.09 mg/dL (0.72-1.25); POTASSIUM 3.9 mmol/L (3.5-5.1)
[2022-02-11 08:00] VITALS: BP 138/68
[2022-02-11] MEDS ORDERED: METRONIDAZOLE 500MG/NS 100ML 100 ML IV SCH (08:00)
[2022-02-11 08:30] VITALS: BP 138/68
[2022-02-11] MEDS: SEVELAMER CARBONATE 800 MG TAB PO SCH (09:08)
[2022-02-11] MEDS: IRON-VITAMIN-MINERAL CAPSULE PO SCH (09:09)
[2022-02-11] MEDS: HYDRALAZINE HCL 25 MG TAB PO SCH (09:09)
[2022-02-11] MEDS: SODIUM BICARBONATE 650 MG TAB PO SCH (09:09)
[2022-02-11] MEDS: ASPIRIN 81 MG CHEW TAB PO SCH (09:09)
[2022-02-11] MEDS ORDERED: CIPRO250 MG PO (09:48)
[2022-02-11] MEDS ORDERED: FLAGYL375 MG PO (09:49)
[2022-02-11] MEDS ORDERED: ONDANSETRON ODT4 MG SL (09:51)
== END 2022-02-11 10:40 | disposition home or self-care (01) | DRG 871 ==
LOC: ER 11:54 → ERHOLD 14:46 → ICU 17:43 → MED/SURG3 02-09 15:37
PROVIDERS: ADMIT Internal Medicine; ATTEND Internal Medicine
PROC: 3E03329 Introduction of Other Anti-infective into Peripheral Vein, Percutaneous Approach (ICD-10-PCS; 2022-02-06)
PROC: 5A1D70Z Performance of Urinary Filtration, Intermittent, Less than 6 Hours Per Day (ICD-10-PCS; principal; 2022-02-07)
DX: A41.9 Sepsis, unspecified organism (principal); U07.1 COVID-19; N18.6 End stage renal disease; J12.82 Pneumonia due to coronavirus disease 2019; K57.32 Diverticulitis of large intestine without perforation or abscess without bleeding; I13.2 Hypertensive heart and chronic kidney disease with heart failure and with stage 5 chronic kidney disease, or end stage renal disease; I50.32 Chronic diastolic (congestive) heart failure; N25.81 Secondary hyperparathyroidism of renal origin; A08.39 Other viral enteritis; R65.20 Severe sepsis without septic shock; Z99.2 Dependence on renal dialysis; D63.1 Anemia in chronic kidney disease; K44.9 Diaphragmatic hernia without obstruction or gangrene; K29.70 Gastritis, unspecified, without bleeding; Z80.8 Family history of malignant neoplasm of other organs or systems; Z79.82 Long term (current) use of aspirin; R06.89 Other abnormalities of breathing
CPT/HCPCS: 36415; 71046; 74176; 80048; 80053; 80061; 81001; 82150; 82270; 82607; 82728; 82746; 83036; 83540; 83605; 83690; 83735; 83970; 84100; 84443; 84466; 85025; 85045; 86705; 86706; 87040; 87086; 87340; 87493; 90962; 93306; 94760; 94799; 96360; 99284; J0360; J0692; J1756; J2405; J2543; J3370; J7030; J7050; U0002

== ENCOUNTER 2022-05-10 17:04 | Emergency (ER) | payer MEDICARE, OTHER ==
[~2022-05-10] VITALS: Ht 160 cm; Wt 71.2 kg
[~2022-05-10 17:04] MED LIST changes: +CIPRO250 MG PO; +FLAGYL375 MG PO; +FLOMAX0.4 MG PO; +ONDANSETRON ODT4 MG SL
== END 2022-05-10 18:19 | disposition home or self-care (01) ==
LOC: ER 17:10
DX: I12.9 Hypertensive chronic kidney disease with stage 1 through stage 4 chronic kidney disease, or unspecified chronic kidney disease (principal); N18.9 Chronic kidney disease, unspecified; Z99.2 Dependence on renal dialysis; R11.2 Nausea with vomiting, unspecified; R51.9 Headache, unspecified
CPT/HCPCS: 93005; 99282

== ENCOUNTER 2024-12-13 16:25 | Emergency (ER) | payer SELFPAY | END 2024-12-13 17:45 | disposition left against medical advice (07) | LOC: ER 17:40 | DX: R10.9 Unspecified abdominal pain (principal) ==